=== PATIENT | female | born 1985 | race Caucasian/White ===

== ENCOUNTER → 2019-05-14 10:24 | Outpatient (CLI) | payer BC, SELFPAY ==
[2019-05-09 15:45] VITALS: BMI 17.6
[2019-05-14 11:19] LABS: Follicle Stimulating Hormone 10.9 mIU/mL; Prolactin 28.1 ng/mL; Thyroid Stim Hormone (TSH) 1.43 uIU/mL (0.358-3.74)
[2019-05-16 18:45] LABS: DHEA Sulfate 199.2 ug/dL (84.8-378.0)
[2019-05-17 17:07] LABS: Testosterone Free 0.9 pg/mL (0.0-4.2)
== END ==
PROVIDERS: Referring Provider Obstetrics & Gynecology; Visit Provider Obstetrics & Gynecology
DX: N94.6 Dysmenorrhea, unspecified (principal); L70.9 Acne, unspecified; N97.9 Female infertility, unspecified
CPT/HCPCS: 36415; 82627; 82670; 83001; 84146; 84402; 84439; 84443; 82626

== ENCOUNTER → 2019-09-22 14:38 | Outpatient (CLI) | payer BC, SELFPAY ==
[2019-09-22 14:25] VITALS: BMI 17.6
[2019-09-22 14:56] LABS: Absolute Lymphocyte Count 1.81 X10^3/uL (0.83-4.51); Absolute Neutrophil Count 4.5 X10^3/uL (2.0-7.7); Basophil# 0.03 X10^3/uL; Basophil% 0.4 % (0-1); Eosinophil# 0.03 X10^3/uL; Eosinophils% 0.4 % (0-5); Hematocrit 33.8 % (37-47); Hemoglobin 11.2 g/dL (12.0-15.0); Lymphocyte # 1.81 X10^3/ul (4.0); Mean Corp Hgb Conc 33.1 g/dL (32-36); Mean Corpuscular Hgb 29.2 pg (27.0-32.0); Mean Corpuscular Volume 88.3 fL (81-99); Mean Platelet Vol. 10.6 fl (6.2-12.0); Monocyte# 0.59 X10^3/uL; Monocyte% 8.5 % (0-10); NRBC Flagged by Analyzer 0 % (0-5); Neutrophil # 4.49 X10^3/uL (2.7-7.7); Neutrophil % 64.6 % (47-70); Platelet Count 155 K/mm3 (150-450); RBC Distribution Width CV 13.1 % (11.6-14.6); RBC Distribution Width SD 42.5 fl (35.1-43.9); Red Blood Count 3.83 M/mm3 (4.2-5.4)
[2019-09-22 16:21] LABS: HIV - WCH Non-Reactive (Nonreactive); Hepatitis B Surface Antigen Non-Reactive (Nonreactive); Rubella IgG 70.3 IU/mL
[2019-09-22 19:50] LABS: Chlamydia Trachomatis by PCR Negative (Negative); Neisserai gonorrhoeae by PCR Negative (Negative); Probe Check PASS; Sample Adequacy Control PASS; Specimen Processing Control PASS
[2019-09-29 02:45] LABS: Rapid Plasmin Reagin (RPR) NONREACTIVE (NONREACTIVE)
== END ==
PROVIDERS: Referring Provider Obstetrics & Gynecology; Visit Provider Obstetrics & Gynecology
DX: Z34.90 Encounter for supervision of normal pregnancy, unspecified, unspecified trimester (principal)
CPT/HCPCS: 36415; 85025; 86592; 86703; 86762; 86850; 86900; 86901; 87086; 87088; 87340; 87491; 87591

== ENCOUNTER → 2020-02-09 16:00 | Outpatient (CLI) | payer BC, SELFPAY ==
[2020-02-09 15:39] VITALS: BMI 18.8
[2020-02-09 16:57] LABS: Absolute Lymphocyte Count 1.99 X10^3/uL (0.83-4.51); Absolute Neutrophil Count 6.2 X10^3/uL (2.0-7.7); Basophil# 0.03 X10^3/uL; Basophil% 0.3 % (0-1); Eosinophil# 0.06 X10^3/uL; Eosinophils% 0.7 % (0-5); Hematocrit 30.5 % (37-47); Hemoglobin 9.9 g/dL (12.0-15.0); Lymphocyte # 1.99 X10^3/ul (4.0); Lymphocyte % 21.8 % (19-41); Mean Corp Hgb Conc 32.5 g/dL (32-36); Mean Corpuscular Volume 89.4 fL (81-99); Mean Platelet Vol. 10.3 fl (6.2-12.0); Monocyte# 0.69 X10^3/uL; Monocyte% 7.6 % (0-10); NRBC Flagged by Analyzer 0 % (0-5); Neutrophil # 6.23 X10^3/uL (2.7-7.7); Neutrophil % 68.3 % (47-70); Platelet Count 175 K/mm3 (150-450); RBC Distribution Width CV 12.9 % (11.6-14.6); RBC Distribution Width SD 42.2 fl (35.1-43.9); Red Blood Count 3.41 M/mm3 (4.2-5.4); White Blood Count 9.1 K/mm3 (4.4-11.0)
[2020-02-09 17:32] LABS: Glucose Challenge Gest 1H 50g 125 mg/dL (70-140)
== END ==
PROVIDERS: Nurse Practitioner Women's Health; Referring Provider Obstetrics & Gynecology; Visit Provider Obstetrics & Gynecology
DX: Z34.90 Encounter for supervision of normal pregnancy, unspecified, unspecified trimester (principal)
CPT/HCPCS: 36415; 82950; 85025; 86850

== ENCOUNTER → 2020-03-08 15:21 | Outpatient (CLI) | payer BC, SELFPAY ==
[2020-02-09 15:39] VITALS: BMI 18.8
[2020-03-08 15:36] LABS: Absolute Lymphocyte Count 1.71 X10^3/uL (0.83-4.51); Absolute Neutrophil Count 7.2 X10^3/uL (2.0-7.7); Basophil# 0.04 X10^3/uL; Basophil% 0.4 % (0-1); Eosinophil# 0.05 X10^3/uL; Eosinophils% 0.5 % (0-5); Hematocrit 30.1 % (37-47); Hemoglobin 9.6 g/dL (12.0-15.0); Lymphocyte # 1.71 X10^3/ul (4.0); Lymphocyte % 16.7 % (19-41); Mean Corp Hgb Conc 31.9 g/dL (32-36); Mean Corpuscular Hgb 28.7 pg (27.0-32.0); Mean Corpuscular Volume 90.1 fL (81-99); Mean Platelet Vol. 10.4 fl (6.2-12.0); Monocyte# 0.99 X10^3/uL; Monocyte% 9.7 % (0-10); NRBC Flagged by Analyzer 0 % (0-5); Neutrophil # 7.19 X10^3/uL (2.7-7.7); Neutrophil % 70.3 % (47-70); Platelet Count 151 K/mm3 (150-450); RBC Distribution Width CV 14.9 % (11.6-14.6); Red Blood Count 3.34 M/mm3 (4.2-5.4); White Blood Count 10.2 K/mm3 (4.4-11.0)
== END ==
PROVIDERS: Referring Provider Obstetrics & Gynecology; Visit Provider Obstetrics & Gynecology
DX: D50.9 Iron deficiency anemia, unspecified (principal)
CPT/HCPCS: 85025

== ENCOUNTER → 2020-03-14 14:22 | Outpatient (CLI) | payer BC, SELFPAY ==
[2020-03-08 15:49] VITALS: BMI 18.8
[2020-03-14] MEDS: 0.9% NaCl Peripheral Flush Adult/Peds IV (14:30)
[2020-03-14] MEDS: 0.9% NaCl IVPB Med Flush (250 mL) 15 ML IV (14:36)
[2020-03-14 14:38] VITALS: BP 105/69; PULSE 112; RESP 16; TEMP 36.7; BMI 22.1
== END ==
PROVIDERS: Referring Provider Obstetrics & Gynecology; Visit Provider Obstetrics & Gynecology
DX: D50.9 Iron deficiency anemia, unspecified (principal)
CPT/HCPCS: 96365; 96366; J1756; J7050; A4216

== ENCOUNTER → 2020-03-21 14:17 | Outpatient (CLI) | payer BC, SELFPAY ==
[2020-03-08 15:49] VITALS: BMI 18.8
[2020-03-14 14:38] VITALS: BMI 22.1
[2020-03-21] MEDS: 0.9% NaCl IVPB Med Flush (250 mL) 15 ML IV (14:55)
[2020-03-21] MEDS: 0.9% NaCl Peripheral Flush Adult/Peds IV (14:56)
[2020-03-21 15:11] VITALS: BP 119/61; PULSE 98; RESP 16; O2SAT 98; BMI 22.1
[2020-03-21 16:40] VITALS: BP 119/63; PULSE 102; RESP 16; O2SAT 99
== END ==
PROVIDERS: Referring Provider Obstetrics & Gynecology; Visit Provider Obstetrics & Gynecology
DX: D50.9 Iron deficiency anemia, unspecified (principal)
CPT/HCPCS: 96365; 96366; J1756; J7050; A4216

== ENCOUNTER → 2020-03-28 14:17 | Outpatient (CLI) | payer BC, SELFPAY ==
[2020-03-08 15:49] VITALS: BMI 18.8
[2020-03-21 15:11] VITALS: BMI 22.1
[2020-03-28 14:23] VITALS: BP 119/71; PULSE 115; RESP 18; TEMP 36.6; O2SAT 98; BMI 22.1
[2020-03-28] MEDS: 0.9% NaCl IVPB Med Flush (250 mL) 15 ML IV (14:34)
[2020-03-28] MEDS: 0.9% NaCl Peripheral Flush Adult/Peds IV (14:39)
== END ==
PROVIDERS: Referring Provider Obstetrics & Gynecology; Visit Provider Obstetrics & Gynecology
DX: D50.9 Iron deficiency anemia, unspecified (principal)
CPT/HCPCS: 96365; 96366; J1756; J7050; A4216

== ENCOUNTER → 2020-04-12 15:15 | Outpatient (CLI) | payer BC, SELFPAY ==
[2020-04-06 16:00] VITALS: BMI 22.1
[2020-04-12 15:49] LABS: Absolute Lymphocyte Count 1.73 X10^3/uL (0.83-4.51); Absolute Neutrophil Count 5.7 X10^3/uL (2.0-7.7); Basophil# 0.03 X10^3/uL; Basophil% 0.4 % (0-1); Eosinophil# 0.03 X10^3/uL; Eosinophils% 0.4 % (0-5); Hematocrit 34.7 % (37-47); Hemoglobin 11.4 g/dL (12.0-15.0); Lymphocyte # 1.73 X10^3/ul (4.0); Lymphocyte % 20.7 % (19-41); Mean Corp Hgb Conc 32.9 g/dL (32-36); Mean Corpuscular Hgb 30.2 pg (27.0-32.0); Mean Platelet Vol. 10.7 fl (6.2-12.0); Monocyte# 0.74 X10^3/uL; Monocyte% 8.8 % (0-10); NRBC Flagged by Analyzer 0 % (0-5); Neutrophil # 5.73 X10^3/uL (2.7-7.7); Neutrophil % 68.4 % (47-70); Platelet Count 149 K/mm3 (150-450); RBC Distribution Width CV 15.7 % (11.6-14.6); RBC Distribution Width SD 52.9 fl (35.1-43.9); Red Blood Count 3.77 M/mm3 (4.2-5.4); White Blood Count 8.4 K/mm3 (4.4-11.0)
== END ==
PROVIDERS: Referring Provider Obstetrics & Gynecology; Visit Provider Obstetrics & Gynecology
DX: D50.9 Iron deficiency anemia, unspecified (principal)
CPT/HCPCS: 36415; 85025

== ENCOUNTER → 2020-04-13 | Outpatient (CLI) | payer BC, SELFPAY ==
[2020-04-13 16:08] VITALS: BMI 22.1
== END | disposition home or self-care (01) ==
LOC: LABSPEC 16:51
PROVIDERS: Referring Provider Obstetrics & Gynecology; Visit Provider Obstetrics & Gynecology
DX: Z34.01 Encounter for supervision of normal first pregnancy, first trimester (principal)
CPT/HCPCS: 87077; 87081; 87186

== ENCOUNTER 2020-04-28 03:25 | Inpatient (IN) | payer BC, SELFPAY ==
[2020-04-27 15:58] VITALS: BMI 22.1
[2020-04-28] VITALS (67 sets, daily range): BP systolic 86–138; BP diastolic 53–94; PULSE 72–146; RESP 16–18; TEMP 36.3–37.1; O2SAT 97–100; BMI 24.0
[2020-04-28] MEDS: Lactated Ringers 500 ML 999 ML IV ×2 (03:50→05:35)
[2020-04-28 04:09] LABS: Absolute Lymphocyte Count 1.76 X10^3/uL (0.83-4.51); Basophil# 0.03 X10^3/uL; Basophil% 0.3 % (0-1); Eosinophil# 0.06 X10^3/uL; Eosinophils% 0.6 % (0-5); Hematocrit 40.1 % (37-47); Hemoglobin 12.9 g/dL (12.0-15.0); Lymphocyte # 1.76 X10^3/ul (4.0); Lymphocyte % 18.2 % (19-41); Mean Corp Hgb Conc 32.2 g/dL (32-36); Mean Corpuscular Hgb 29.8 pg (27.0-32.0); Mean Corpuscular Volume 92.6 fL (81-99); Mean Platelet Vol. 10.9 fl (6.2-12.0); Monocyte# 0.72 X10^3/uL; Monocyte% 7.4 % (0-10); NRBC Flagged by Analyzer 0 % (0-5); Neutrophil # 7.03 X10^3/uL (2.7-7.7); Neutrophil % 72.7 % (47-70); Platelet Count 166 K/mm3 (150-450); RBC Distribution Width CV 15.3 % (11.6-14.6); RBC Distribution Width SD 52.1 fl (35.1-43.9); Red Blood Count 4.33 M/mm3 (4.2-5.4); White Blood Count 9.7 K/mm3 (4.4-11.0)
[2020-04-28] MEDS: Lactated Ringers 1,000 ML 200 ML IV ×2 (04:30→09:40)
[2020-04-28] MEDS: fentaNYL-bupivacaine (epidural) 100 ML BAG EPIDURAL ×2 (05:22→09:40)
--- NOTE | 2020-04-28 06:27 | HP.PCM_ITS ---
- Problem List (1) SROM (spontaneous rupture of membranes) Status: Acute (2) Active labor at term Status: Acute (3) Iron (Fe) deficiency anemia Status: Acute Qualifiers: Comment: cbc still low, recommend IV iron infusions and repeat after completed (4) Positive GBS test Status: Acute Comment: Penicillin at delivery (5) Status: Acute Qualifiers: Comment: genetic, carrier and ntd screening declined, normal anatomy (6) Supervision of normal Status: Acute Qualifiers: Comment: PRR ANDREEA 05/05/20 boy Ashely - Addy History and Physical Date of Admission: 04/28/20 Intake Vital Signs 04/27/20 Height 5 ft 3 in 04/27/20 Weight: 137 lb 6 oz 04/27/20 BMI 24.3 04/27/20 BP 116/72 01/16/20 BMI 18.8 Intake Visit Reasons: 39 wk ob 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 Patient has had increasing contractions since then denies any vaginal bleeding admits good movement. Patient has had a uncomplicated . OB Visit ANDREEA Calculator Estimated Delivery Date Method Current WG Current Estimate 05/05/20 LMP (Certain) 39w 0d Expected Delivery Route/Plan Labor Preferences- labor support person: pain management options preferred: epidural cut cord/dad catch: yes : yes PP control planned: [] discussed possible routes of delivery and associated risks: [] special requests: [] Specific Issue/Plans flu vaccine: declined tdap vaccine: given rhogam: na LARC form signed: [] movement and labor precautions reviewed. Problem list reviewed and updated with the most current plan of care details and appropriate orders placed. Relevant counseling for the gestational age provided. Continue routine care and follow up unless otherwise noted in visit notes/problem list details Initial Weight: 110 lb Date EGA Weight BP Urine Prot Glucose FHR FuHt Pres Dilation Effaced St Visit Note 10/17/19 11w 2d 106 lb (-4 lb) 120/70 Negative Negative 168 no vb cramping 11/17/19 15w 5d 111 lb (+16 oz) 112/77 Negative Negative 145 SM- no vb cramping 12/15/19 19w 5d 117 lb 2 oz (+7 lb 2 oz) 110/80 Negative Negative 145 SM no vb cramping had nl anatomy 01/13/20 23w 6d 119 lb (+9 lb) 108/78 Negative Negative 140 SM- no vb lof good fm no regular ctx 02/09/20 27w 5d 123 lb 2 oz (+13 lb 2 oz) 110/78 Negative Negative 138 27 MH-No VB, LOF. Good Fm. 28 wk labs, tdap. 03/08/20 31w 5d 127 lb (+17 lb) 100/68 Negative Negative 150 32 SM- no vb lof good fm no regular ctx 04/06/20 35w 6d 130 lb (+20 lb) 102/74 Negative Negative 150 36 Cephalic SM- no vb lof good fm no regular ctx 04/13/20 36w 6d 135 lb 4 oz (+25 lb 4 oz) 130/94 Negative Negative 150 37 Cephalic 1 0 -1 SM- no vb lof good fm no regular ctx gbs today 04/20/20 37w 6d 132 lb 6 oz (+22 lb 6 oz) 120/84 Negative Negative 153 37 Cephalic 1 MH-No Vb, LOF, reg CTX. Good FM 04/27/20 38w 6d 137 lb 6 oz (+27 lb 6 oz) 116/72 Negative Negative 135 39 Cephalic 2 SM- no vb lof good fm no regular ctx Notes Visit Date: 04/27/20 ??No visit notes to display Visit Date: 04/20/20 ??No visit notes to display Visit Date: 04/13/20 ??No visit notes to display Visit Date: 04/06/20 ??No visit notes to display Visit Date: 03/08/20 ??No visit notes to display Visit Date: 02/09/20 ??No visit notes to display Visit Date: 01/13/20 ??No visit notes to display Visit Date: 12/15/19 ??No visit notes to display Visit Date: 11/17/19 ??No visit notes to display Visit Date: 10/17/19 ??no vb cramping ??Maria Fernanda Marquez MD on 10/17/19 ACOG First Trimester First Trimester: Desire for , Alcohol, Tobacco Cessation, Illicit/Recreational Drug/Substance Use, Intimate Partner Violence, Barriers to care, Unstable Housing, Communication Barriers, Environmental/Work Hazards, Anticipated Course of Care, Toxoplasmosis Precations, Use of Any medications, Sexual activity, Exercise, Dental Care, Sauna/Hot tub use, Seat Belt use, Childbirth classes/Hospital facilities, , Travel, Indications for US and Screening for Aneuploidy Diagnostics Diagnostics Diagnostics Blood Type O POSITIVE 04/28/20 Antibody Screen NEGATIVE 04/28/20 Glucose 1 Hr 50 gm 125 mg/dL (70-140) 02/09/20 Hgb 12.9 g/dL (12.0-15.0) 04/28/20 Hct 40.1 % (37-47) 04/28/20 Details: HIV: Urine Culture: Sequential Screen: NIPT Screen: ROS Const Reports system reviewed and no additional complaints, except as docu Card Reports system reviewed and no additional complaints, except as docu Resp Reports system reviewed and no additional complaints, except as docu GI Reports system reviewed and no additional complaints, except as docu, Reports nausea Reports system reviewed and no additional complaints, except as docu Musc Reports system reviewed and no additional complaints, except as docu Exam Const General: cooperative, healthy appearing, comfortable, anxious HENMT Head: normal to inspection Nose: external nose normal Face and sinus: normal facial exam Neck Neck: normal visual inspection, full ROM, no lymphadenopathy Thyroid: thyroid normal Chest Chest palpation & inspection: normal inspection of the chest Resp Effort & Inspection: normal respiratory effort GI Inspection: normal to inspection Palpation: soft, other (gravid uterus) Other: vertex and appropriate size for gestational age Other: Cervical Exam: Extrem General: pedal edema Cervical exam station Results POC Urinalysis 2 Dip (Clinic) Office Urine Glucose Negative Last Edit by Kassy Webster on 04/27/20 15:54 Office Urine Protein Negative Last Edit by Kassy Webster on 04/27/20 15:54 Assessment & Plan Problems 1. Positive GBS test B95.1 Penicillin at delivery 2. Iron deficiency anemia, unspecified iron deficiency anemia type D50.9 cbc still low, recommend IV iron infusions and repeat after completed 3. 38 weeks gestation of Z3A.38 genetic, carrier and ntd screening declined, normal anatomy 4. Encounter for supervision of normal first in first trimester Z34.01 PRR ANDREEA 05/05/20 boy Ashely - Addy 34-year-old G1, P0 at 39 weeks presents with spontaneous rupture membranes and active labor Patient presents IAL, plan expectant management for , Pitocin if needed. Pain management: [plans epidural]. GBS [positive plan IV PCN]. Management of any complications: [none] I have reviewed the [facility] and made any clinically relevant updates. Orders Orders: POC Urinalysis 2 Dip (Clinic) 04/27/20 Coding Level of Care Code OB Routine Diagnoses Positive GBS test B95.1 Iron deficiency anemia, unspecified iron deficiency anemia type D50.9 ??Iron deficiency anemia type: unspecified iron deficiency 38 weeks gestation of Z3A.38 ??Weeks of gestation: 38 weeks Encounter for supervision of normal first in first trimester Z34.01 ??Normal : normal first ??Trimester: first trimester
--- NOTE | 2020-04-28 12:02 | OP.PCM_ITS ---
Problem List (1) SROM (spontaneous rupture of membranes) Status: Acute (2) Active labor at term Status: Acute (3) Iron (Fe) deficiency anemia Status: Acute Qualifiers: Comment: cbc still low, recommend IV iron infusions and repeat after completed (4) Positive GBS test Status: Acute Comment: Penicillin at delivery (5) Status: Acute Qualifiers: Comment: genetic, carrier and ntd screening declined, normal anatomy (6) Supervision of normal Status: Acute Qualifiers: Comment: PRR ANDREEA 05/05/20 boy Ashely - Addy Vaginal Delivery Maternal Presentation: Active Labor, Spontaneous Rupture of Membranes ial srom clear fluid Amniotic Fluid Description: Clear Final ANDREEA: 05/05/20 Gestational age: 39 Weeks and 0 Days Date of Procedure: 04/28/20 Pre-Operative Diagnosis: ial Post-Operative Diagnosis: same Surgery/ Procedure Performed: Spontaneous Vaginal Delivery Type of Anesthesia: Epidural Description of Procedure: Patient began pushing and delivered the head in the [BALTA] presentation. The head was delivered atraumatically . The anterior and posterior shoulders delivered without complication followed by the rest of the and the infant was placed on the maternal abdomen. Delayed cord clamping was employed for approximately 60 seconds. Cord was clamped and cut and gentle traction was appl ied to the cord and the placenta delivered spontaneously immediately following it was noted to be intact with three-vessel cord. The perineum and vagina were inspected and noted to have a second-degree perineal laceration that was repaired in the usual fashion with 3-0 Vicryl Rapide some interrupted 2-0 Vicryl sutures. EBL was 300 cc. Patient and infant tolerated delivery well. Presentation: FREDIS Placental Delivery Description: Spontaneous Placenta Disposition: [facility] Cord Entanglement: None Estimated Blood Loss: 300 A gender: Male Episiotomy Description: None Laceration: Perineal Extension/lac, 2nd degree Medications given after delivery: IV Pitocin Complications: None Multi Select Codes - Urinary/Genital Urinary/Genital CPT Codes: 23260 Vaginal Delivery [facility]
[2020-04-28] MEDS: Oxytocin 30 units/NS 500 ml 30 UNITS/500 ML IV.SOLN 334 UNITS IV (12:56)
--- NOTE | 2020-04-28 14:31 | NURSING ---
thomas removed prior to delivery by Dr. Marquez
[2020-04-28] MEDS: Senna/Docusate Sodium 1 Tablet PO (17:28)
[2020-04-28] MEDS: Naproxen 250 MG Tablet 500 MG PO (17:28)
--- NOTE | 2020-04-28 17:45 | NURSING ---
patients ability to ambulate assessed. Patient able to move left leg freely in bed. patient able to lift right leg off bed 2 inches but does not have full range of motion. Patient reports range of motion improving from previous. Will continue to assess patient for ability to ambulate.
--- NOTE | 2020-04-28 18:35 | NURSING ---
patient reports her right leg remains numb at this time and is unable to lift it off the bed. patient reports having feeling in her lower abdomen and is able to feel this nurses touch during straight catheterization. Patient is able to move left leg. Patient reports sedatives taking a long time to wear off on her during previous surgeries. Will continue to monitor.
--- NOTE | 2020-04-28 18:39 | NURSING ---
fundal assessment post straight catheterization
--- NOTE | 2020-04-28 18:40 | NURSING ---
Patient assisted to edge of bed at this time. patient able to stand. Assisted x1 to rocking chair by this RN. Patient denies dizziness or other symptoms. Support person at bedside. call light in reach. Will continue to monitor.
[2020-04-28] MEDS: Acetaminophen 500 MG Tablet 1000 MG PO (23:09)
[2020-04-29] MEDS: Naproxen 250 MG Tablet 500 MG PO ×2 (01:51→11:07)
[2020-04-29 04:25] VITALS: BP 113/74; PULSE 88; RESP 16; TEMP 36.9
--- NOTE | 2020-04-29 07:22 | DCINST_ITS ---
Discharge Diet: No Restrictions Discharge Activity: Return to Normal Activity, May not drive while taking narcotic pain medications., May Shower May resume sexual activity in: 4-6 weeks Call your doctor if your incision/area has: Continuous Slow Oozing, Sudden Increased Bleeding, Increased Pain/ Swelling, Increased Redness, Foul Smelling Discharge Additional Instructions: If you experience any of the following, contact your healthcare provider. * Bleeding that soaks a pad every hour for 2 hours * Fever 100.4 or higher * Unrelieved incision or abdominal pain * Swelling, redness, discharge or bleeding from your incision or episiotomy site * Your incision begins to separate * Problems urinating (including inability to urinate or burning while urinating). * Visual changes * Severe headache * Flu-like symptoms * Pain or redness in one of both of your breasts * Pain, warmth, tenderness or swelling in your legs, especially the calf area * Frequent nausea and vomiting * Symptoms of depression or anxiety If you experience any of the following, call 911 or go to the nearest Emergency Room. * Chest pain * Problems breathing * Seizure activity * Partial or complete paralysis of a body part, slurred speech, weakness or drooping of the face, or a sudden inability to walk or hold your balance Allergies/Adverse Reactions: Allergies No Known Allergies Allergy (Verified 04/27/20 15:54) Medications to take at Discharge Docosahexanoic Acid [ Dha] 1 cap PO DAILY 04/28/20 Docusate Sodium [Colace] 100 mg PO BID #60 cap 04/29/20 Naproxen [Naprosyn] 250 - 500 mg PO Q8H PRN PRN #30 tab 04/29/20 Oxycodone HCl/Acetaminophen [Percocet 5-325] 1 - 2 tablet PO Q6H PRN PRN 7 Days #15 tablet 04/29/20 The following prescriptions were given: Docusate Sodium [Colace] 100 mg PO BID #60 cap Transmission Status: [facility] to [id number] Naproxen [Naprosyn] 250 - 500 mg PO Q8H PRN PRN #30 tab PRN Reason: MILD PAIN Transmission Status: [id number] Oxycodone HCl/Acetaminophen [Percocet 5-325] 1 - 2 tablet PO Q6H PRN PRN 7 Days #15 tablet PRN Reason: Pain Transmission Status: Received by [id number] Please Follow Up With: Maria Fernanda Marquez MD - [phone] When: Call to make an appointment with your doctor in 6 weeks. If you had elevated Blood pressure or 4th degree laceration you will need to be seen in 2 weeks. Primary Care Physician: Care Physician,No Primary [Primary Care Provider] - Test Results: Test results from this visit will be discussed in further detail at your follow- up appointment, if applicable.
--- NOTE | 2020-04-29 07:22 | PCM.PN.OB ---
Patient Problems: Active and Suspected Problems (Last Reviewed 04/27/20 @ 15:55 by Kassy Webster) SROM (spontaneous rupture of membranes) (Acute) Active labor at term (Acute) Subjective: doing well no complaints pain controlled no CP SOB N V ambulating well tolerating po lochia moderate, going well - Physical Exam Vitals/I&O's: Vital Signs Temp Pulse Resp BP Pulse Ox 98.4 F 88 16 113/74 100 04/29/20 04:25 04/29/20 04:25 04/29/20 04:25 04/29/20 04:25 04/28/20 15:17 Oxygen Delivery Method Room Air Weight: 135 lb 8 oz Body Mass Index (BMI) 24.0 Intake and Output for Last 24 Hours 04/27/20 04/28/20 04/29/20 23:59 23:59 23:59 Intake Total 4248.33 / 4248.33 Output Total 1300 / 1300 250 / 250 Balance 2948.33 / 2948.33 -250 / -250 General: Alert, Oriented x3 Current Medications Acetaminophen (Tylenol) 1,000 mg PO Q8H PRN PRN PRN Reason: Pain Score 1-3/10 Last Admin: 04/28/20 23:09 Dose: 1,000 mg Documented by: Bisacodyl (Dulcolax) 10 mg RECTAL UD PRN PRN Reason: If no BM Dibucaine (Dibucaine) 1 applic TOPICAL TID PRN PRN; Protocol PRN Reason: Discomfort Hydrocortisone (Hytone) 1 applic TOPICAL TID PRN PRN; Protocol PRN Reason: Discomfort Methylergonovine Maleate (Methergine) 0.2 mg IM X1 PRN PRN Reason: Excess bleeding/uterine atony Naproxen (Naprosyn) 500 mg PO Q8H PRN PRN PRN Reason: Pain Score 1-3/10 Last Admin: 04/29/20 01:51 Dose: 500 mg Documented by: Ondansetron HCl (Zofran) 4 mg IV Q4H PRN PRN PRN Reason: Nausea Oxycodone HCl (Oxyir) 5 - 10 mg PO Q4H PRN PRN PRN Reason: Pain Score 4-10/10 Senna/Docusate Sodium (Senokot-S, Sun-Colace) 1 - 2 tablet PO DAILY PRN PRN PRN Reason: Constipation Last Admin: 04/28/20 17:28 Dose: 1 tablet Documented by: Simethicone (Mylicon) 80 mg PO PCHS PRN PRN Reason: Indigestion/Stomach pain Sodium Chloride () 5 - 15 ml IV UD PRN PRN Reason: SALINE FLUSH Medical Necessity - Tobacco Use Smoking Status: Never smoker Assessment/Plan All Active Problems (Last Reviewed 04/27/20 @ 15:55 by Kassy Webster) SROM (spontaneous rupture of membranes) (Acute) Active labor at term (Acute) Positive GBS test (Acute) Iron (Fe) deficiency anemia (Acute) (Acute) Supervision of normal (Acute) Acne (Resolved) Dysmenorrhea (Resolved) Primary female infertility (Resolved) s/p PPD # 1 1. routine post delivery care 2. breast feeding- support given 3. rh positive 4. rubella immune
--- NOTE | 2020-04-29 07:22 | PCM.DCVAG ---
Discharge Diet: No Restrictions Discharge Activity: Return to Normal Activity, May not drive while taking narcotic pain medications., May Shower May resume sexual activity in: 4-6 weeks Call your doctor if your incision/area has: Continuous Slow Oozing, Sudden Increased Bleeding, Increased Pain/ Swelling, Increased Redness, Foul Smelling Discharge Additional Instructions: If you experience any of the following, contact your healthcare provider. Bleeding that soaks a pad every hour for 2 hours Fever 100.4 or higher Unrelieved incision or abdominal pain Swelling, redness, discharge or bleeding from your incision or episiotomy site Your incision begins to separate Problems urinating (including inability to urinate or burning while urinating). Visual changes Severe headache Flu-like symptoms Pain or redness in one of both of your breasts Pain, warmth, tenderness or swelling in your legs, especially the calf area Frequent nausea and vomiting Symptoms of depression or anxiety If you experience any of the following, call 911 or go to the nearest Emergency Room. Chest pain Problems breathing Seizure activity Partial or complete paralysis of a body part, slurred speech, weakness or drooping of the face, or a sudden inability to walk or hold your balance Allergies/Adverse Reactions: Allergies No Known Allergies Allergy (Verified 04/27/20 15:54) Medications to take at Discharge Docosahexanoic Acid [ Dha] 1 cap PO DAILY 04/28/20 Docusate Sodium [Colace] 100 mg PO BID #60 cap 04/29/20 Naproxen [Naprosyn] 250 - 500 mg PO Q8H PRN PRN #30 tab 04/29/20 Oxycodone HCl/Acetaminophen [Percocet 5-325] 1 - 2 tablet PO Q6H PRN PRN 7 Days #15 tablet 04/29/20 The following prescriptions were given: Docusate Sodium [Colace] 100 mg PO BID #60 cap Transmission Status: [id number] Naproxen [Naprosyn] 250 - 500 mg PO Q8H PRN PRN #30 tab PRN Reason: MILD PAIN Transmission Status: [id number] Oxycodone HCl/Acetaminophen [Percocet 5-325] 1 - 2 tablet PO Q6H PRN PRN 7 Days #15 tablet PRN Reason: Pain Transmission Status: [id number] Please Follow Up With: Maria Fernanda Marquez MD - [phone] When: Call to make an appointment with your doctor in 6 weeks. If you had elevated Blood pressure or 4th degree laceration you will need to be seen in 2 weeks. Primary Care Physician: Care Physician,No Primary [Primary Care Provider] - Test Results: Test results from this visit will be discussed in further detail at your follow-up appointment, if applicable.
[2020-04-29 08:29] VITALS: BP 113/73; PULSE 88; RESP 16; TEMP 35.6
[2020-04-29 08:30] VITALS: BP 113/73; PULSE 88
[2020-04-29] MEDS: Acetaminophen 500 MG Tablet 1000 MG PO (08:42)
[2020-04-29 13:35] VITALS: BP 115/72; PULSE 107
[2020-04-29 13:45] VITALS: BP 115/72; PULSE 101; TEMP 37.1
== END 2020-04-29 14:30 | disposition home or self-care (01) | DRG 807 ==
LOC: OBT 03:27 → WP 03:27
PROVIDERS: Admitting Provider Obstetrics & Gynecology; Referring Provider Obstetrics & Gynecology; Visit Provider Obstetrics & Gynecology
DX: O98.813 Other maternal infectious and parasitic diseases complicating pregnancy, third trimester (principal); Z37.0 Single live birth; O70.1 Second degree perineal laceration during delivery; O99.013 Anemia complicating pregnancy, third trimester; D50.9 Iron deficiency anemia, unspecified; B95.1 Streptococcus, group B, as the cause of diseases classified elsewhere; Z3A.39 39 weeks gestation of pregnancy
CPT/HCPCS: 59025; 59050; 85025; 86850; 86900; 86901; 87635; 99218; G2023; J7120; G0378; U0003

== ENCOUNTER → 2020-06-07 | Outpatient (CLI) | payer BC, SELFPAY ==
[2020-06-07 14:26] VITALS: BMI 24.0
[2020-06-13 16:57] LABS: HPV APTIMA, High Risk Negative (Negative)
== END | disposition home or self-care (01) ==
LOC: LABSPEC 16:30
PROVIDERS: Referring Provider Obstetrics & Gynecology; Visit Provider Obstetrics & Gynecology
DX: Z12.4 Encounter for screening for malignant neoplasm of cervix (principal)
CPT/HCPCS: 87624; 88175; G0145

== ENCOUNTER → 2023-10-30 | Outpatient (CLI) | payer BC, SELFPAY ==
[2023-11-06 13:07] LABS: HPV APTIMA, High Risk Positive (Negative)
== END | disposition home or self-care (01) ==
LOC: LABSPEC 16:56
PROVIDERS: Referring Provider Obstetrics & Gynecology; Visit Provider Obstetrics & Gynecology
DX: Z12.4 Encounter for screening for malignant neoplasm of cervix (principal)
CPT/HCPCS: 87624; 88175; G0145

== ENCOUNTER → 2023-12-15 | Outpatient (CLI) | payer BC, SELFPAY ==
--- NOTE | 2023-12-15 | CER_PTH ---
PATHOLOGY RESULTS PATIENT: IVANNA OZUNA [id number] AGE/SX: 38/F ROOM: RE12/15/[address]: Dr. Ivanna Potts DO : 1985 BED: DIS: 12/15/2023 SPEC #: [id number] RECD: 12/15/23 16:40 STATUS: JARROD SB #: [id number] ADDIS: 12/15/23 00:[address]: Ivanna Potts DEPT: SURGICAL PATHOLOGY RECD BY: Rukhsana Donaldson ENTERED: 12/16/23 08:34 SP TYPE: CERV OTHR DR: No Primary Care Phys Tissues: Uterine cervix, NOS Endocervical Procedures: Surgery Specimen Level IV HEADER OPERATION: Colposcopy PRE-OP DIAGNOSIS: Abnormal pap TISSUE SUBMITTED: A - Cervix 7 o'clock, B - Endocervical curettings MICROSCOPIC DIAGNOSIS A. Cervix, 7 o'clock, biopsy: Chronic inflammation and squamous metaplasia. Negative for dysplasia. See comment. B. Endocervical curettings: Fragments of benign endocervical epithelium, negative for dysplasia. CALDERON:jazlyn 12/17/2023 COMMENT A. Immunohistochemistry ([id number]) for surrogate HPV marker (p16) supports the above diagnosis. MICROSCOPIC DESCRIPTION Slides are reviewed. GROSS DESCRIPTION A - Received in fixative is one container labeled with the patient's name and designated 7 o'clock. The specimen consists of one irregular fragment of light engel soft tissue that measures 0.5 x 0.3 x 0.2 cm. The specimen is totally submitted in one cassette. B - Received in fixative is one container labeled with the patient's name and designated [facility]. The specimen consists of a scant amount of soft tissue. The specimen is totally submitted for cell block preparation. / CALDERON:jazlyn 12/16/2023 TC:5 CPT: 12581 x2
--- OUTSIDE RECORDS SUMMARY | 2023-12-15 17:26 | XMS RPT_ITS | CCD ---
Author Name Unknown Address [facility] [place] [address] Organization [facility] Care Team Providers Care Banana Loader Name Role Phone Maria Fernanda Marquez MD [phone] Problems Active Problems Problem Classification Problem Date Documented Date Episodic/Chronic Unclassified (3 sources) Screening for malignant neoplasm of cervix ; Translations: [Encounter for screening for malignant neoplasm of cervix] Onset: 08-07-2017 08-07-2017 Unclassified (3 sources) Gynecologic examination ; Translations: [Encounter for gynecological examination (general) (routine) without abnormal findings] Onset: 08-07-2017 08-07-2017 Unclassified (2 sources) Postoperative physical examination; Translations: [Encounter for other specified surgical aftercare] Onset: 05-15-2016 05-15-2016 Unclassified (2 sources) Procedure carried out on subject; Translations: [Encounter for screening for human papillomavirus (HPV)] Onset: 08-07-2017 08-07-2017 Past or Other Problems Problem Classification Problem Date Documented Date Episodic/Chronic Contraceptive and procreative management (3 sources) Encounter for other general counseling and advice on procreation; Translations: [Encounter for other general counseling and advice on procreation] Onset: 08-07-2017 08-07-2017 Episodic Fracture of upper limb (8 sources) Displaced fracture of olecranon process with intraarticular extension of left ulna, subsequent encounter for closed fracture with routine healing; Translations: [Displaced fracture of olecranon process with intraarticular extension of left ulna, initial encounter for closed fracture] Onset: 04-25-2016 05-15-2016 Episodic Immunizations and screening for infectious disease (3 sources) Encounter for screening for human papillomavirus (HPV); Translations: [Encounter for screening for human papillomavirus (HPV)] Onset: 08-07-2017 08-07-2017 Episodic Other aftercare (2 sources) Encounter for other specified surgical aftercare; Translations: [Encounter for other specified surgical aftercare] Onset: 05-15-2016 05-15-2016 Episodic Other non-traumatic joint disorders (7 sources) Pain in elbow; Translations: [Pain in wrist] Onset: 04-25-2016 04-29-2016 Episodic Other non-traumatic joint disorders (1 source) Pain in wrist; Translations: [Pain in left wrist] Onset: 04-25-2016 04-25-2016 Episodic Results Test Name Value Interpretation Reference Range Facil ity Vital Signs Date Time Vital Sign Value Performing Clinician Faci lity 08-07-2017 16:11-0400 BMI (Body Mass Index) 18.46 kg/m2 Maria Fernanda Marquez MD [facility] 08-07-2017 16:11-0400 Body Temperature 96.9 [degF] Maria Fernanda Marquez MD [facility] 08-07-2017 16:11-0400 Body Temperature 96.91 [degF] Maria Fernanda Marquez MD [facility] 08-07-2017 16:11-0400 BP Diastolic 78 mm[Hg] Maria Fernanda Marquez MD [facility] 08-07-2017 16:11-0400 BP Systolic 122 mm[Hg] Maria Fernanda Marquez MD [facility] 08-07-2017 16:11-0400 Height 160.02 cm Maria Fernanda Marquez MD [facility] 08-07-2017 16:11-0400 Pulse (Heart Rate) 121 /min Maria Fernanda Marquez MD [facility] 08-07-2017 16:11-0400 Respiratory Rate 16 /min Maria Fernanda Marquez MD [facility] 08-07-2017 16:11-0400 Weight 47.27 kg Maria Fernanda Marquez MD [facility] 08-07-2017 16:11-0400 Weight 47.26 kg Maria Fernanda Marquez MD [facility] Procedures Date Procedure Procedure Detail Performing Clinician Start: 08-07-2017 Gynecologic examination Travel Med Surg Rn annual e malcolm Marquez MD Start: 08-07-2017 Screening for malign ant neoplasm of cervix Screening for cervical cancer Maria Fernanda Marquez MD Plan of Treatment Date Care Activity Detail Author Start: 08-07-2017 End: 08-07-2017 Appointment Appointment [facility] Start: 08-05-2016 End: 08-05-2016 Radex elbow complete minimum 3 views X-Ray, Elbow [facility] Start: 08-05-2016 End: 08-05-2016 X-ray exam of elbow X-Ray, Elbow [facility] Start: 06-12-2016 End: 06-12-2016 Radex elbow complete minimum 3 views X-Ray, Elbow [facility] Start: 06-12-2016 End: 06-12-2016 X-ray exam of elbow X-Ray, Elbow [facility] Start: 05-21-2016 End: 05-21-2016 Occupational Therapy General Occupational Therapy [facility], [address] [place] [address], [id number] [facility] Start: 05-21-2016 End: 05-21-2016 Occupational Therapy General Occupational Therapy [facility], [address] [place] [address], [id number] [facility] Start: 05-15-2016 End: 05-15-2016 Radex elbow complete minimum 3 views X-Ray, Elbow [facility] Start: 05-15-2016 End: 05-15-2016 X-ray exam of elbow X-Ray, Elbow [facility] Start: 05-06-2016 End: 05-06-2016 Radex elbow complete minimum 3 views X-Ray, Elbow [facility] Start: 05-06-2016 End: 05-06-2016 X-ray exam of elbow X-Ray, Elbow [facility] Start: 04-25-2016 End: 04-25-2016 Radex wrist complete minimum 3 views X-Ray, Wrist [facility] Start: 04-25-2016 End: 04-25-2016 X-ray exam of wrist X-Ray, Wrist [facility] Additional Source Comments FOR RECORDS PERTAINING TO PATIENTS WHO ARE OR HAVE BEEN ENROLLED IN A CHEMICAL DEPENDENCY/SUBSTANCEABUSE PROGRAM, SOME INFORMATION MAY BE OMITTED. This clinical summary was aggregated from multiple sources. Caution should be exercised in using it in the provision of clinical care. This summary normalizes information from multiple sources, and as a consequence, information in this document may materially change the coding, format and clinical context of patient data. In addition, data may be omitted in some cases. CLINICAL DECISIONS SHOULD BE BASED ON THE PRIMARY CLINICAL RECORDS. [employer] [facility]. provides no warranty or guarantee of the accuracy or completeness of information in this document.
--- NOTE | 2023-12-17 | IMM_PTH ---
PATHOLOGY RESULTS PATIENT: IVANNA OZUNA LOC: [facility] U#:[id number] AGE/SX: 38/F ROOM: RE12/15/[address]: Dr. Ivanna Potts DO : 1985 BED: DIS: 12/15/2023 SPEC #: [id number] RECD: 12/17/23 11:29 STATUS: JARROD SB #: [id number] ADDIS: 12/17/23 00:[address]: Ivanna Potts DEPT: IMMUNOHISTOCHEMISTRY RECD BY: Lakesha Cardenas ENTERED: 12/17/23 11:31 SP TYPE: IMMUNO OTHR DR: No Primary Care Phys Tissues: Uterine cervix, NOS Embryo, NOS Procedures: p16 (initial) KI-67 (add) PHYSICIAN & INSTITUTION [facility] [id number] SPECIMEN INFORMATION: Tissue Source: A - Cervix at 7 o'clock Clinical Info: Colposcopy Specimen Number: [id number] CPT code: 69789, 98164 METHODOLOGY: Deparaffinized sections of prefer/formalin-fixed tissue or PAP/DQ stained slides are incubated with monoclonal/polyclonal antibodies/oligonucleotide probes. Localization is made via biotin free immunoperoxidase method. Appropriate controls are performed and reacted as expected. Results on target cell population are indicated in the following table: RESULTS: ANTIBODY / CLONE RESULT Block A P16 (E6H4) negative Ki-67 (30-9) positive, low These tests were developed and their performance characteristics determined by [facility]. They may not have been cleared or approved by the U.S. Food and Drug Administration. The FDA has determined that such clearance or approval is not necessary. The above immunohistochemical/dualISH markers are ordered and reviewed by the Pathologist. INTERPRETATION: A. Cervix at 7 o'clock, biopsy: Negative for dysplasia. CALDERON:jazlyn 12/18/2023
== END | disposition home or self-care (01) ==
LOC: LABSPEC 16:45
PROVIDERS: Referring Provider Obstetrics & Gynecology; Visit Provider Obstetrics & Gynecology
DX: R87.619 Unspecified abnormal cytological findings in specimens from cervix uteri (principal)
CPT/HCPCS: 88305; 88341; 88342

== ENCOUNTER → 2024-07-08 | Outpatient (CLI) | payer BC, SELFPAY ==
[2024-07-08 15:09] LABS: Absolute Lymphocyte Count 2.22 X10^3/uL (0.83-4.51); Absolute Neutrophil Count 4.9 X10^3/uL (2.0-7.7); Basophil# 0.03 X10^3/uL; Basophil% 0.4 % (0-1); Eosinophil# 0.03 X10^3/uL; Eosinophils% 0.4 % (0-5); Hematocrit 33.5 % (37-47); Hemoglobin 11.1 g/dL (12.0-15.0); Lymphocyte # 2.22 X10^3/ul (0.83-4.51); Lymphocyte % 28.4 % (19-41); Mean Corp Hgb Conc 33.1 g/dL (32-36); Mean Corpuscular Hgb 29.1 pg (27.0-32.0); Mean Corpuscular Volume 87.7 fL (81-99); Mean Platelet Vol. 10.6 fl (6.2-12.0); Monocyte% 7.7 % (0-10); NRBC Flagged by Analyzer 0 % (0-5); Neutrophil # 4.91 X10^3/uL (2.7-7.7); Neutrophil % 62.8 % (47-70); Platelet Count 184 K/mm3 (150-450); RBC Distribution Width CV 12.7 % (11.6-14.6); RBC Distribution Width SD 40.6 fl (35.1-43.9); Red Blood Count 3.82 M/mm3 (4.2-5.4); White Blood Count 7.8 K/mm3 (4.4-11.0)
[2024-07-08 16:17] LABS: HIV - WCH Non-Reactive (Nonreactive); Hepatitis B Surface Antigen Non-Reactive (Nonreactive); Hepatitis C Antibody Non-Reactive (Nonreactive); Rubella IgG Reactive (Nonreactive); Syphilis Antibodies Non-reactive
[2024-07-11 20:07] LABS: Chlamydia By Nucleic Acid AMP Negative (Negative); Gonococcus By Nucleic Acid AMP Negative (Negative)
== END | disposition home or self-care (01) ==
PROVIDERS: Referring Provider Advanced Practice Midwife; Visit Provider Advanced Practice Midwife
DX: O09.90 Supervision of high risk pregnancy, unspecified, unspecified trimester (principal)
CPT/HCPCS: 36415; 85025; 86703; 86762; 86780; 86803; 86850; 86900; 86901; 87086; 87088; 87340; 87491; 87591

== ENCOUNTER → 2024-10-03 | Outpatient (CLI) | payer BC, SELFPAY ==
[2024-10-03 16:55] LABS: Absolute Lymphocyte Count 2.05 X10^3/uL (0.83-4.51); Absolute Neutrophil Count 6.7 X10^3/uL (2.0-7.7); Basophil# 0.04 X10^3/uL; Basophil% 0.4 % (0-1); Eosinophil# 0.08 X10^3/uL; Eosinophils% 0.8 % (0-5); Hematocrit 31.5 % (37-47); Hemoglobin 10.4 g/dL (12.0-15.0); Lymphocyte # 2.05 X10^3/ul (0.83-4.51); Lymphocyte % 21.2 % (19-41); Mean Corpuscular Hgb 29.9 pg (27.0-32.0); Mean Corpuscular Volume 90.5 fL (81-99); Mean Platelet Vol. 10.6 fl (6.2-12.0); Monocyte# 0.77 X10^3/uL; NRBC Flagged by Analyzer 0 % (0-5); Neutrophil # 6.68 X10^3/uL (2.7-7.7); Platelet Count 194 K/mm3 (150-450); RBC Distribution Width CV 13.8 % (11.6-14.6); RBC Distribution Width SD 45.3 fl (35.1-43.9); Red Blood Count 3.48 M/mm3 (4.2-5.4); White Blood Count 9.7 K/mm3 (4.4-11.0)
== END | disposition home or self-care (01) ==
LOC: LAB 16:14
PROVIDERS: Referring Provider Advanced Practice Midwife; Visit Provider Advanced Practice Midwife
DX: Z34.92 Encounter for supervision of normal pregnancy, unspecified, second trimester (principal)
CPT/HCPCS: 36415; 85025

== ENCOUNTER → 2024-11-14 | Outpatient (CLI) | payer BC, SELFPAY ==
[2024-11-14 17:12] LABS: Absolute Neutrophil Count 6.3 X10^3/uL (2.0-7.7); Basophil# 0.03 X10^3/uL; Basophil% 0.3 % (0-1); Eosinophil# 0.04 X10^3/uL; Eosinophils% 0.5 % (0-5); Hematocrit 31.5 % (37-47); Hemoglobin 10.1 g/dL (12.0-15.0); Lymphocyte % 19.5 % (19-41); Mean Corp Hgb Conc 32.1 g/dL (32-36); Mean Corpuscular Hgb 29.2 pg (27.0-32.0); Mean Platelet Vol. 10.3 fl (6.2-12.0); Monocyte# 0.53 X10^3/uL; Monocyte% 6.1 % (0-10); NRBC Flagged by Analyzer 0 % (0-5); Neutrophil # 6.33 X10^3/uL (2.7-7.7); Neutrophil % 72.6 % (47-70); Platelet Count 193 K/mm3 (150-450); RBC Distribution Width CV 13.3 % (11.6-14.6); RBC Distribution Width SD 44.2 fl (35.1-43.9); Red Blood Count 3.46 M/mm3 (4.2-5.4); White Blood Count 8.7 K/mm3 (4.4-11.0)
[2024-11-14 17:20] LABS: Glucose Challenge Gest 1H 50g 148 mg/dL (70-140)
[2024-11-14 17:53] LABS: HIV - WCH Non-Reactive (Nonreactive); Syphilis Antibodies Non-reactive
== END | disposition home or self-care (01) ==
LOC: BWCLAB 15:38
PROVIDERS: Obstetrics & Gynecology; Referring Provider Obstetrics & Gynecology; Visit Provider Obstetrics & Gynecology
DX: O09.92 Supervision of high risk pregnancy, unspecified, second trimester (principal); Z13.1 Encounter for screening for diabetes mellitus; Z3A.00 Weeks of gestation of pregnancy not specified
CPT/HCPCS: 36415; 82950; 85025; 86703; 86780

== ENCOUNTER → 2024-11-23 | Outpatient (CLI) | payer BC, SELFPAY ==
[2024-11-23 07:22] LABS: Bedside Glucose 87 mg/dL (74-106)
[2024-11-23 07:52] LABS: Glucose GTT-Gestation. Fasting 88 mg/dL (<105)
[2024-11-23 08:22] LABS: Glucose GTT-Gestational 1 Hr 139 mg/dL (<190)
[2024-11-23 10:26] LABS: Glucose GTT-Gestational 2 Hr 124 mg/dL (<165)
[2024-11-23 11:58] LABS: Glucose GTT-Gestational 3 Hr 100 L (<145)
== END | disposition home or self-care (01) ==
LOC: LAB 06:49
PROVIDERS: Referring Provider Nurse Practitioner Women's Health; Visit Provider Nurse Practitioner Women's Health
DX: O99.810 Abnormal glucose complicating pregnancy (principal); Z3A.00 Weeks of gestation of pregnancy not specified
CPT/HCPCS: 36415; 82951; 82952; 82962

== ENCOUNTER → 2024-11-29 | Outpatient (CLI) | payer BC, SELFPAY ==
[2024-11-29 16:54] LABS: Absolute Lymphocyte Count 2.12 X10^3/uL (0.83-4.51); Absolute Neutrophil Count 6.2 X10^3/uL (2.0-7.7); Basophil# 0.04 X10^3/uL; Basophil% 0.4 % (0-1); Eosinophil# 0.07 X10^3/uL; Eosinophils% 0.8 % (0-5); Hematocrit 32.4 % (37-47); Hemoglobin 10.7 g/dL (12.0-15.0); Lymphocyte # 2.12 X10^3/ul (0.83-4.51); Lymphocyte % 22.9 % (19-41); Mean Corpuscular Hgb 29.8 pg (27.0-32.0); Mean Corpuscular Volume 90.3 fL (81-99); Mean Platelet Vol. 10.4 fl (6.2-12.0); Monocyte# 0.76 X10^3/uL; Monocyte% 8.2 % (0-10); NRBC Flagged by Analyzer 0 % (0-5); Neutrophil # 6.16 X10^3/uL (2.7-7.7); Neutrophil % 66.6 % (47-70); Platelet Count 188 K/mm3 (150-450); RBC Distribution Width CV 13.4 % (11.6-14.6); RBC Distribution Width SD 44.6 fl (35.1-43.9); Red Blood Count 3.59 M/mm3 (4.2-5.4); White Blood Count 9.3 K/mm3 (4.4-11.0)
[2024-11-29 17:21] LABS: Ferritin 10 ng/mL (8-252); Iron 84 ug/dL (50-170); Iron Binding Capacity,Total 530 ug/dL (250-450); PERCENT IRON SATURATION 15.8 % (15.0-55.0)
== END | disposition home or self-care (01) ==
LOC: BWCLAB 15:58
PROVIDERS: Referring Provider Obstetrics & Gynecology; Visit Provider Obstetrics & Gynecology
DX: O99.019 Anemia complicating pregnancy, unspecified trimester (principal); D64.9 Anemia, unspecified; Z3A.00 Weeks of gestation of pregnancy not specified

== ENCOUNTER → 2025-01-09 | Outpatient (CLI) | payer BC, SELFPAY | END | disposition home or self-care (01) | LOC: LABSPEC 15:26 | PROVIDERS: Referring Provider Obstetrics & Gynecology; Visit Provider Obstetrics & Gynecology | DX: O09.93 Supervision of high risk pregnancy, unspecified, third trimester (principal); Z3A.00 Weeks of gestation of pregnancy not specified | CPT/HCPCS: 87081 ==

== ENCOUNTER 2025-01-30 16:26 | Outpatient (CLI) | payer BC, SELFPAY ==
--- NOTE | 2025-01-30 16:37 | US_ITS ---
EXAM: OB LIMITED (NO BIOMETRICS) CLINICAL HISTORY: RACHANA. Reportedly 38 weeks 5 days by previously established dates with ANDREEA 02/08/2025. COMPARISON: None TECHNIQUE: A limited obstetrical ultrasound was performed to determine RACHANA. FINDINGS: Amniotic Fluid Index: 11.0 cm, deepest vertical pocket 3.5 cm. Nonspecific low- level echoes within amniotic fluid. Fetus is in breech presentation with a heart rate of 152 BPM. Placenta location: Posterior. Placental calcification noted. Ovaries not visualized. US/OB Limited (No Biometrics) IMPRESSION: 1. Single live fetus in breech position. 2. Amniotic fluid index and deepest vertical pocket are low-normal and are subj ectively low. Correlate with clinical factors. 3. Additional description as above. Reading Location: [id number]
[2025-01-30 16:44] VITALS: BMI 22.3
[2025-01-30 16:46] VITALS: BP 129/84; PULSE 112; PULSE 115; O2SAT 100
[2025-01-30 16:47] VITALS: RESP 15; TEMP 37.4; O2SAT 99
[2025-01-30 17:46] LABS: ROM Internal Control Test YES-OK TO RESULT pt. (Internal QC); ROM Patient Test Negative (Negative); Record Kit Lot#, ROM+ K3294
[2025-01-30] MEDS: Lactated Ringers 1,000 ML 125 ML IV (17:50)
--- NOTE | 2025-01-30 17:51 | OB.TRI.HP_ITS ---
HPI - General HPI Narrative IVANNA OZUNA, is a 39 F who presents breech presentation intact 11 cm fluid, counseled regarding options and recommend ECV. plan IOL thursday. Maternal Data Information ANDREEA Calculator Estimated Delivery Date Method Current WG Current Estimate 02/08/25 Ultrasound #1 38w 5d Other Estimates 02/16/25 LMP (Certain) 37w 4d PFSH PFSH Medical History Iron (Fe) deficiency anemia Home Medications ?Medication ?Instructions ?Recorded ?Last Taken ?Type multivitamin no.47-iron fum 27 1 cap PO DAILY 06/28/24 01/29/25 09:00 History mg-folate no.1 1 mg-dha 300 mg capsule (PNV-DHA) ferrous sulfate 325 mg (65 mg 325 mg PO DAILY 01/30/25 01/30/25 09:00 History iron) tablet (Feosol) Allergy/AdvReac Type Severity Reaction Status Date / Time No Known Allergies Allergy Verified 01/30/25 17:10 Family History Grandfather Diabetes Surgical History s/p left elbow surgery Social History adopted: No household members: spouse and children number of children: 1 current occupational status: employed 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[employer] current occupational exposures/hazards: No pets and animals: No history of recent travel: No sexually active: Yes Smoking Status: Never smoker alcohol intake: never substance use type: does not use well-balanced diet: daily or most days caffeine: No eating out: rarely or never during the past year weight has: remained stable what type of physical activity do you participate in: none antwan/shinto: None seatbelt use: always do you feel safe at home: Yes additional social history: [employer] 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 Date Name GA/Weeks Outcome Route Bth Weight Infant Gen Labor Lgth Anesthesia Del Locatn Provider FOB 04/28/20 [facility] 39 live - full term Male epi dural [facility] Delivery Date: 04/28/20 Last Updated by: Alcira Hopper 2 degree laceration Visit Details Expected Delivery Route/Plan Labor Preferences- CB/BF classes: [] labor support person: [] labor intervention preferences: [] pain management options preferred: [] cut cord/dad catch: [] : [] PP control planned: [] discussed possible routes of delivery and associated risks: [] special requests: [] Plans Covid status: [] Flu vaccine: declined Tdap vaccine: given Rhogam: na LARC form signed: yes movement and labor precautions reviewed. Problem list reviewed and updated with the most current plan of care details and appropriate orders placed. Relevant counseling for the gestational age provided. Continue routine care and follow up unless otherwise noted in visit notes/problem list details OB Flowsheet Initial Weight: 102 lb Date -?-?-?-?-?-?-?-?-?-?-?-?- EGA Weight BP Urine Prot -?-?-?-?-?-?-?-?-?-?-?-?- Glucose FHR FuHt Pres Dilation -?-?-?-?-?-?-?-?-?-?-?-?- Effaced St Visit Note 07/08/24 -?-?-?-?-?-?-?-?-?-?-?-?- 9w 2d 102 lb (+0 oz) 123/79 -?-?-?-?-?-?-?-?-?-?-?-?- 175 -?-?-?-?-?-?-?-?-?-?-?-?- KW- CRL 22.9mm n ot cons with dates. GA 9.2. declines NIPT KW- CRL 22.9mm not cons with dates. GA 9.2, ANDREEA changed declines NIPT 08/05/24 -?-?-?-?-?-?-?-?-?-?-?-?- 13w 2d 102 lb (+0 oz) 100/60 Negative -?-?-?-?-?-?-?-?-?-?-?-?- Negative 160 -?-?-?-?-?-?-?-?-?-?-?-?- SM- no vb crampi ng 08/30/24 -?-?-?-?-?-?-?-?-?-?-?-?- 16w 6d 108 lb 8 oz (+6 lb 8 oz) 108/70 Negative -?-?-?-?-?-?-?-?-?-?-?-?- Negative 147 -?-?-?-?-?-?-?-?-?-?-?-?- MH-No Vb, LOF. F eeling movement. Some off and on lower pelvic pressure. Enc jigna band 09/27/24 -?-?-?-?-?-?-?-?-?-?-?-?- 20w 6d 113 lb 8 oz (+11 lb 8 oz) 123/77 Negative -?-?-?-?-?-?-?-?-?-?-?-?- Negative 145 20 -?-?-?-?-?-?-?-?-?-?-?-?- KW- no vb/lof/ct x. good fm. normal anatomy. 10/25/24 -?-?-?-?-?-?-?-?-?-?-?-?- 24w 6d 118 lb 2 oz (+16 lb 2 oz) 102/69 Negative -?-?-?-?-?-?-?-?-?-?-?-?- Negative 145 25 -?-?-?-?-?-?-?-?-?-?-?-?- SM- no vb lof go od fm no regular ctx 11/14/24 -?-?-?-?-?-?-?-?-?-?-?-?- 27w 5d 121 lb 4 oz (+19 lb 4 oz) 127/76 Negative -?-?-?-?-?-?-?-?-?-?-?-?- Negative 140 27 -?-?-?-?-?-?-?-?-?-?-?-?- JV- no lof, vagi nal bleeding, or dec fm. tdap next visit. gct today. 11/29/24 -?-?-?-?-?-?-?-?-?-?-?-?- 29w 6d 122 lb (+20 lb) 105/64 Negative -?-?-?-?-?-?-?-?-?-?-?-?- Negative 140 30 -?-?-?-?-?-?-?-?-?-?-?-?- SM- no vb lof go od fm no regular ctx repeat cbc iron studies today tdap 12/13/24 -?-?-?-?-?-?-?-?-?-?-?-?- 31w 6d 123 lb 8 oz (+21 lb 8 oz) 104/60 Negative -?-?-?-?-?-?-?-?-?-?-?-?- Negative 152 32 -?-?-?-?-?-?-?-?-?-?-?-?- -No VB, LOF. Good Fm. Some BH CTX-not regular. Larc. Taking extra FE 12/27/24 -?-?-?-?-?-?-?-?-?-?-?-?- 33w 6d 124 lb 2 oz (+22 lb 2 oz) 122/84 Negative -?-?-?-?-?-?-?-?-?-?-?-?- Negative 145 33 -?-?-?-?--?-?-?-?-?-?-?-?- - no vb lof go od fm nor euglar ctx 01/02/25 -?-?-?-?-?-?-?-?-?-?-?-?- 34w 5d 124 lb 8 oz (+22 lb 8 oz) 128/76 Negative -?-?-?-?-?-?-?-?-?-?-?-?- Negative 152 -?-?-?-?-?-?-?-?-?-?-?-?- -work in throm bosed hemorrhoid X 2: ref gen surgery. No vag or rectal bleeding. Good FM 01/09/25 -?-?-?-?-?-?-?-?-?-?-?-?- 35w 5d 126 lb (+24 lb) 133/80 Negative -?-?-?-?-?-?-?-?-?-?-?-?- Negative 150 35 Cephalic 0 -?-?-?-?-?-?-?-?-?-?-?-?- JV- Hemorrhoids feeling better after procedure but still hurts a lot to sit. Irregular contractions. gbs collected today. 01/16/25 -?-?-?-?-?-?-?-?-?-?-?-?- 36w 5d 125 lb (+23 lb) 114/74 Negative -?-?-?-?-?-?-?-?-?-?-?-?- Negative 145 36 Cephalic -?--?-?-?-?-?-?-?-?-?-?-?- KW- no vb/lof/ct x. good fm. Hemorrhoids feeling better 01/24/25 -?-?-?-?-?-?-?-?-?-?-?-?- 37w 6d 126 lb 8 oz (+24 lb 8 oz) 116/81 Negative -?-?-?-?-?-?-?-?-?-?-?-?- Negative 140 38 Cephalic 3 -?-?-?-?-?-?-?-?-?-?-?-?- 60 -1 SM- no vb lof good fm no regular ctx 01/30/25 -?-?-?-?-?-?-?-?-?-?-?-?- 38w 5d 125 lb (+23 lb) 123/88 Negative -?-?-?-?-?-?-?-?-?-?-?-?- Negative 155 Breech 3 -?-?-?-?-?-?-?-?-?-?-?-?- 70 -1 JV- sendin g to L&D to rule out rom and for RACHANA. I am not able to appreciate a water bag and the buttocks is very much engaged and at a low station. ROS Constitutional Constitutional: Reports systems reviewed and no addt'l complaints, except as documented and as per HPI ENT HEENT: Reports systems reviewed and no addt'l complaints, except as documented Cardiovascular Cardiovascular: Reports systems reviewed and no addt'l complaints, except as documented Respiratory/Chest Respiratory/Chest: Reports systems reviewed and no addt'l complaints, except as documented Gastrointestinal Gastrointestinal: Reports as per HPI Genitourinary Genitourinary: Reports as per HPI Musculoskeletal Musculoskeletal: Reports systems reviewed and no addt'l complaints, except as documented Integumentary Integumentary: Reports systems reviewed and no addt'l complaints, except as documented Neurologic Neurologic: Reports systems reviewed and no addt'l complaints, except as documented Physical Exam Const alert, oriented x3 and no apparent distress HEENT Head and Scalp: normocephalic and atraumatic Neck full ROM and no lymphadenopathy Chest inspection of chest normal Resp normal respiratory effort GI GI Narrative: gravid, abdomen nontender, AGA Manual OB Exam: dilated, effaced and station NST FHR Rate Baby A Baseline: 130 Variability:: Moderate Accelerations:: 15 x 15 Decelerations:: None NST Reactive:: Yes FHR Category:: Category I Uterine Activity:: regular q 2-4 Assessment & Plan (1) Engagement of fetus in breech position: (2) AMA (advanced maternal age) multigravida 35+: QUALIFIERS: Trimester: second trimester Qualified Code(s): O09 .522 - Supervision of elderly multigravida, second trimester COMMENT: genetic screening offered (3) Supervision of high-risk : QUALIFIERS: Trimester: third trimester Qualified Code(s): O09.93 - Supervision of high risk , unspecified, third trimester COMMENT: PRR, , ANDREEA 02/16/25, Scooby LI Andrew, Addy (4) : QUALIFIERS: Weeks of gestation: 38 weeks Qualified Code(s): Z3A.38 - 38 weeks gestation of COMMENT: GBS neg. discussed genetic & carrier testing -undecided, normal anatomy (5) Nausea and vomiting during : PLAN: Plan 38 weeks discussed options and plan ECV now, IV placed. Charges/Coding Multi Select Codes Visit Charges Office Visit/Consults: 54648 OV L3 Est 20min Urinary/Genital Urinary/Genital CPT Codes: 69336-04 non-stress test Interp
--- NOTE | 2025-01-30 17:51 | OB.TRI.NOTE ---
HPI - General HPI Narrative IVANNA OZUNA, is a 39 F who presents breech presentation intact 11 cm fluid, counseled regarding options and recommend ECV. plan IOL thursday. Maternal Data Information ANDREEA Calculator Estimated Delivery Date Method Current WG Current Estimate 02/08/25 Ultrasound #1 38w 5d Other Estimates 02/16/25 LMP (Certain) 37w 4d PFSH PFSH Medical History Iron (Fe) deficiency anemia Home Medications ?Medication ?Instructions ?Recorded ?Last Taken ?Type multivitamin no.47-iron fum 27 1 cap PO DAILY 06/28/24 01/29/25 09:00 History mg-folate no.1 1 mg-dha 300 mg capsule (PNV-DHA) ferrous sulfate 325 mg (65 mg 325 mg PO DAILY 01/30/25 01/30/25 09:00 History iron) tablet (Feosol) Allergy/AdvReac Type Severity Reaction Status Date / Time No Known Allergies Allergy Verified 01/30/25 17:10 Family History Grandfather Diabetes Surgical History s/p left elbow surgery Social History adopted: No household members: spouse and children number of children: 1 current occupational status: employed 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[employer] current occupational exposures/hazards: No pets and animals: No history of recent travel: No sexually active: Yes Smoking Status: Never smoker alcohol intake: never substance use type: does not use well-balanced diet: daily or most days caffeine: No eating out: rarely or never during the past year weight has: remained stable what type of physical activity do you participate in: none antwan/temple: None seatbelt use: always do you feel safe at home: Yes additional social history: [employer] 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 Date Name GA/Weeks Outcome Route Bth Weight Infant Gen Labor Lgth Anesthesia Del Locatn Provider FOB 04/28/20 [place] 39 live - full term Male epidural [facility] Delivery Date: 04/28/20 Last Updated by: Alcira Hopper 2 degree laceration Visit Details Expected Delivery Route/Plan Labor Preferences- CB/BF classes: [] labor support person: [] labor intervention preferences: [] pain management options preferred: [] cut cord/dad catch: [] : [] PP control planned: [] discussed possible routes of delivery and associated risks: [] special requests: [] Plans Covid status: [] Flu vaccine: declined Tdap vaccine: given Rhogam: na LARC form signed: yes movement and labor precautions reviewed. Problem list reviewed and updated with the most current plan of care details and appropriate orders placed. Relevant counseling for the gestational age provided. Continue routine care and follow up unless otherwise noted in visit notes/problem list details OB Flowsheet Initial Weight: 102 lb Date <del>?</del> EGA Weight BP Urine Prot <del>?</del> Glucose FHR FuHt Pres Dilation <del>?</del> Effaced St Visit Note 07/08/24 <del>?</del> 9w 2d 102 lb (+0 oz) 123/79 <del>?</del> 175 <del>?</del> KW- CRL 22.9mm not cons with dates. GA 9.2. declines NIPT KW- CRL 22.9mm not cons with dates. GA 9.2, ANDREEA changed declines NIPT 08/05/24 <del>?</del> 13w 2d 102 lb (+0 oz) 100/60 Negative <del>?</del> Negative 160 <del>?</del> SM- no vb cramping 08/30/24 <del>?</del> 16w 6d 108 lb 8 oz (+6 lb 8 oz) 108/70 Negative <del>?</del> Negative 147 <del>?</del> MH-No Vb, LOF. Feeling movement. Some off and on lower pelvic pressure. Enc jigna band 09/27/24 <del>?</del> 20w 6d 113 lb 8 oz (+11 lb 8 oz) 123/77 Negative <del>?</del> Negative 145 20 <del>?</del> KW- no vb/lof/ctx. good fm. normal anatomy. 10/25/24 <del>?</del> 24w 6d 118 lb 2 oz (+16 lb 2 oz) 102/69 Negative <del>?</del> Negative 145 25 <del>?</del> SM- no vb lof good fm no regular ctx 11/14/24 <del>?</del> 27w 5d 121 lb 4 oz (+19 lb 4 oz) 127/76 Negative <del>?</del> Negative 140 27 <del>?</del> JV- no lof, vaginal bleeding, or dec fm. tdap next visit. gct today. 11/29/24 <del>?</del> 29w 6d 122 lb (+20 lb) 105/64 Negative <del>?</del> Negative 140 30 <del>?</del> SM- no vb lof good fm no regular ctx repeat cbc iron studies today tdap 12/13/24 <del>?</del> 31w 6d 123 lb 8 oz (+21 lb 8 oz) 104/60 Negative <del>?</del> Negative 152 32 <del>?</del> MH-No VB, LOF. Good Fm. Some BH CTX-not regular. Larc. Taking extra FE 12/27/24 <del>?</del> 33w 6d 124 lb 2 oz (+22 lb 2 oz) 122/84 Negative <del>?</del> Negative 145 33 <del>?</del> SM- no vb lof good fm nor euglar ctx 01/02/25 <del>?</del> 34w 5d 124 lb 8 oz (+22 lb 8 oz) 128/76 Negative <del>?</del> Negative 152 <del>?</del> -work in thrombosed hemorrhoid X 2: ref gen surgery. No vag or rectal bleeding. Good FM 01/09/25 <del>?</del> 35w 5d 126 lb (+24 lb) 133/80 Negative <del>?</del> Negative 150 35 Cephalic 0 <del>?</del> JV- Hemorrhoids feeling better after procedure but still hurts a lot to sit. Irregular contractions. gbs collected today. 01/16/25 <del>?</del> 36w 5d 125 lb (+23 lb) 114/74 Negative <del>?</del> Negative 145 36 Cephalic <del>?</del> KW- no vb/lof/ctx. good fm. Hemorrhoids feeling better 01/24/25 <del>?</del> 37w 6d 126 lb 8 oz (+24 lb 8 oz) 116/81 Negative <del>?</del> Negative 140 38 Cephalic 3 <del>?</del> 60 -1 SM- no vb lof good fm no regular ctx 01/30/25 <del>?</del> 38w 5d 125 lb (+23 lb) 123/88 Negative <del>?</del> Negative 155 Breech 3 <del>?</del> 70 -1 JV- sending to L&D to rule out rom and for RACHANA. I am not able to appreciate a water bag and the buttocks is very much engaged and at a low station. ROS Constitutional Constitutional: Reports systems reviewed and no addt'l complaints, except as documented and as per HPI ENT HEENT: Reports systems reviewed and no addt'l complaints, except as documented Cardiovascular Cardiovascular: Reports systems reviewed and no addt'l complaints, except as documented Respiratory/Chest Respiratory/Chest: Reports systems reviewed and no addt'l complaints, except as documented Gastrointestinal Gastrointestinal: Reports as per HPI Genitourinary Genitourinary: Reports as per HPI Musculoskeletal Musculoskeletal: Reports systems reviewed and no addt'l complaints, except as documented Integumentary Integumentary: Reports systems reviewed and no addt'l complaints, except as documented Neurologic Neurologic: Reports systems reviewed and no addt'l complaints, except as documented Physical Exam Const alert, oriented x3 and no apparent distress HEENT Head and Scalp: normocephalic and atraumatic Neck full ROM and no lymphadenopathy Chest inspection of chest normal Resp normal respiratory effort GI GI Narrative: gravid, abdomen nontender, AGA Manual OB Exam: dilated, effaced and station NST FHR Rate Baby A Baseline: 130 Variability:: Moderate Accelerations:: 15 x 15 Decelerations:: None NST Reactive:: Yes FHR Category:: Category I Uterine Activity:: regular q 2-4 Assessment & Plan (1) Engagement of fetus in breech position: (2) AMA (advanced maternal age) multigravida 35+: QUALIFIERS: Trimester: second trimester Qualified Code(s): O09.522 - Supervision of elderly multigravida, second trimester COMMENT: genetic screening offered (3) Supervision of high-risk : QUALIFIERS: Trimester: third trimester Qualified Code(s): O09.93 - Supervision of high risk , unspecified, third trimester COMMENT: PRR, , ANDREEA 02/16/25, Scooby LI Andrew, Addy (4) : QUALIFIERS: Weeks of gestation: 38 weeks Qualified Code(s): Z3A.38 - 38 weeks gestation of COMMENT: GBS neg. discussed genetic & carrier testing -undecided, normal anatomy (5) Nausea and vomiting during : PLAN: Plan 38 weeks discussed options and plan ECV now, IV placed. Charges/Coding Multi Select Codes Visit Charges Office Visit/Consults: 91648 OV L3 Est 20min Urinary/Genital Urinary/Genital CPT Codes: 30208-65 non-stress test Interp
--- NOTE | 2025-01-30 17:53 | OP.PCM_ITS ---
Procedures Urinary/Genital 52xxx-[id number]: 58443 ECV Operative Report (Standard) Operative Information Date of Procedure: 01/30/25 Pre-Operative Diagnosis: breech Post-Operative Diagnosis: vertex Surgery/Procedure Performed: external cephalic version newspaper editor: No Type of Anesthesia: None Procedure Start Time: 17:00 Procedure Stop Time: 17:10 Select all DRAINS/GRAFTS/IMPLANTS that apply: None Estimated Blood Loss: 0 Specimen collected: No Description of surgery: The fetus was found to be in breech presentation informed by ultrasound. Patient had an IV in place, normal amniotic fluid, no contraindications to a vaginal delivery, and reactive nonstress test prior to the procedure. Patient was placed in the dorsal supine position after the terbutaline was given. Ultrasound gel was applied to the patient's abdomen and using constant upward pressure to elevate the buttocks out of the pelvic inlet constant pressure was applied to the buttocks and to the area behind the back of the neck and head to encourage a forward roll of the fetus. Constant pressure was applied and slowly the was converted to a vertex presentation with a forward roll. Bedside ultrasound was used to confirm vertex presentation and reassuring heart rate. Patient was replaced on the NST and monitored to assure reassuring status. No complications. Surgical Findings: none Complications Complications: No
[2025-01-30] MEDS: Terbutaline 1 MG/ML Vial 0.25 MG SC (18:12)
[2025-01-30 18:18] LABS: Hematocrit 35.6 % (37-47); Mean Corp Hgb Conc 33.7 g/dL (32-36); Mean Corpuscular Hgb 29.7 pg (27.0-32.0); Mean Corpuscular Volume 88.1 fL (81-99); Mean Platelet Vol. 10.8 fl (6.2-12.0); Platelet Count 185 K/mm3 (150-450); RBC Distribution Width CV 13.9 % (11.6-14.6); RBC Distribution Width SD 44.3 fl (35.1-43.9); Red Blood Count 4.04 M/mm3 (4.2-5.4); White Blood Count 9.1 K/mm3 (4.4-11.0)
[2025-01-30 19:42] VITALS: BP 118/59; PULSE 102; PULSE 159; O2SAT 87
== END 2025-01-30 20:33 | disposition home or self-care (01) ==
LOC: WPOUT 16:35 → WP 16:36
PROVIDERS: Obstetrics & Gynecology; Referring Provider Advanced Practice Midwife; Visit Provider Advanced Practice Midwife
DX: O32.1XX0 Maternal care for breech presentation, not applicable or unspecified (principal); O09.523 Supervision of elderly multigravida, third trimester; Z3A.38 38 weeks gestation of pregnancy
CPT/HCPCS: 59412; 36415; 59025; 59050; 76815; 84112; 85027; 86850; 86900; 86901; 96372; 99221; G0378

== ENCOUNTER 2025-02-01 15:50 | Inpatient (IN) | payer BC, SELFPAY ==
[2025-02-01] VITALS (39 sets, daily range): BP systolic 106–137; BP diastolic 51–87; PULSE 82–114; RESP 16–18; TEMP 36.1–37.1; O2SAT 86–100; BMI 22.5
[2025-02-01 16:46] LABS: Absolute Lymphocyte Count 1.84 X10^3/uL (0.83-4.51); Absolute Neutrophil Count 9.3 X10^3/uL (2.0-7.7); Basophil# 0.03 X10^3/uL; Basophil% 0.2 % (0-1); Eosinophil# 0.03 X10^3/uL; Eosinophils% 0.2 % (0-5); Hematocrit 32.7 % (37-47); Hemoglobin 10.9 g/dL (12.0-15.0); Lymphocyte # 1.84 X10^3/ul (0.83-4.51); Lymphocyte % 15.1 % (19-41); Mean Corp Hgb Conc 33.3 g/dL (32-36); Mean Corpuscular Hgb 29.7 pg (27.0-32.0); Mean Corpuscular Volume 89.1 fL (81-99); Mean Platelet Vol. 10.9 fl (6.2-12.0); Monocyte# 0.94 X10^3/uL; Monocyte% 7.7 % (0-10); NRBC Flagged by Analyzer 0 % (0-5); Neutrophil # 9.27 X10^3/uL (2.7-7.7); Neutrophil % 76.3 % (47-70); Platelet Count 173 K/mm3 (150-450); RBC Distribution Width CV 14.1 % (11.6-14.6); RBC Distribution Width SD 45.6 fl (35.1-43.9); Red Blood Count 3.67 M/mm3 (4.2-5.4); White Blood Count 12.2 K/mm3 (4.4-11.0)
[2025-02-01] MEDS: Lactated Ringers 1,000 ML 50 ML IV (17:00)
[2025-02-01] MEDS: Oxytocin 15 Units/NS 250ml 15 UNITS/250 ML IV.SOLN 2 UNITS IV (17:00)
[2025-02-01 19:33] LABS: Syphilis Antibodies Nonreactive (Nonreactive)
[2025-02-01] MEDS: Lactated Ringers 1,000 ML 999 ML IV (20:05)
[2025-02-01] MEDS: fentaNYL-bupivacaine (epidural) 100 ML BAG EPIDURAL (20:50)
--- NOTE | 2025-02-01 21:19 | HP.PCM.OB_ITS ---
HPI - General General Date of Admission: 02/01/25 HPI Narrative IVANNA OZUNA, is a 39 F who presents for IOL ama no vb lof good fm n oeruglar ctx vertex on scan today Maternal Data Information ANDREEA Calculator Estimated Delivery Date Method Current WG Current Estimate 02/08/25 Ultrasound #1 39w 0d Other Estimates 02/16/25 LMP (Certain) 37w 6d PFSH PFSH Medical History Iron (Fe) deficiency anemia Home Medications ?Medication ?Instructions ?Recorded ?Last Taken ?Type multivitamin no.47-iron fum 27 1 cap PO DAILY PRN preg el 06/28/24 01/31/25 History mg-folate no.1 1 mg-dha 300 mg capsule (PNV-DHA) ferrous sulfate 325 mg (65 mg 325 mg PO DAILY pregnanc y 01/30/25 02/01/25 History iron) tablet (Feosol) Allergy/AdvReac Type Severity Reaction Status Date / Time No Known Allergies Allergy Verified 02/01/25 16:57 Family History Grandfather Diabetes Surgical History s/p left elbow surgery Social History adopted: No household members: spouse and children number of children: 1 current occupational status: employed 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 Date Name GA/Weeks Outcome Route Bth Weight Gen Labor Lgth Anesthesia Del Locatn Provider FOB 04/28/20 [place] 39 live - full term Male epi dural [facility] Delivery Date: 04/28/20 Last Updated by: Alcira Hopper 2 degree laceration Visit Details Expected Delivery Route/Plan Labor Preferences- CB/BF classes: [] labor support person: [] labor intervention preferences: [] pain management options preferred: [] cut cord/dad catch: [] : [] PP control planned: [] discussed possible routes of delivery and associated risks: [] special requests: [] Plans Covid status: [] Flu vaccine: declined Tdap vaccine: given Rhogam: na LARC form signed: yes movement and labor precautions reviewed. Problem list reviewed and updated with the most current plan of care details and appropriate orders placed. Relevant counseling for the gestational age provided. Continue routine care and follow up unless otherwise noted in visit notes/problem list details OB Flowsheet Initial Weight: 102 lb Date -?-?-?-?-?-?-?-?-?-?-?-?- EGA Weight BP Urine Prot -?-?-?-?-?-?-?-?-?-?-?-?- Glucose FHR FuHt Pres Dilation -?-?-?-?-?-?-?-?-?-?-?-?- Effaced St Visit Note 07/08/24 -?-?-?-?-?-?-?-?-?-?-?-?- 9w 2d 102 lb (+0 oz) 123/79 -?-?-?-?-?-?-?-?-?-?-?-?- 175 -?-?-?-?-?-?-?-?-?-?-?-?- KW- CRL 22.9mm n ot cons with dates. GA 9.2. declines NIPT KW- CRL 22.9mm not cons with dates. GA 9.2, ANDREEA changed declines NIPT 08/05/24 -?-?-?-?-?-?-?-?-?-?-?-?- 13w 2d 102 lb (+0 oz) 100/60 Negative -?-?-?-?-?-?-?-?-?-?-?-?- Negative 160 -?-?-?-?-?-?-?-?-?-?-?-?- SM- no vb crampi ng 08/30/24 -?-?-?-?-?-?-?-?-?-?-?-?- 16w 6d 108 lb 8 oz (+6 lb 8 oz) 108/70 Negative -?-?-?-?-?-?-?-?-?-?-?-?- Negative 147 -?-?-?-?-?-?-?-?-?-?-?-?- MH-No Vb, LOF. F eeling movement. Some off and on lower pelvic pressure. Enc jigna band 09/27/24 -?-?-?-?-?-?-?-?-?-?-?-?- 20w 6d 113 lb 8 oz (+11 lb 8 oz) 123/77 Negative -?-?-?-?-?-?-?-?-?-?-?-?- Negative 145 20 -?-?-?-?-?-?-?-?-?-?-?-?- KW- no vb/lof/ct x. good fm. normal anatomy. 10/25/24 -?-?-?-?-?-?-?-?-?-?-?-?- 24w 6d 118 lb 2 oz (+16 lb 2 oz) 102/69 Negative -?-?-?-?-?-?-?-?-?-?-?-?- Negative 145 25 -?-?-?-?-?-?-?--?-?-?-?-?- SM- no vb lof go od fm no regular ctx 11/14/24 -?-?-?-?-?-?-?-?-?-?-?-?- 27w 5d 121 lb 4 oz (+19 lb 4 oz) 127/76 Negative -?-?-?-?-?-?-?-?-?-?-?-?- Negative 140 27 -?-?-?-?-?-?-?-?-?-?-?-?- JV- no lof, vagi nal bleeding, or dec fm. tdap next visit. gct today. 11/29/24 -?-?-?-?-?-?-?-?-?-?-?-?- 29w 6d 122 lb (+20 lb) 105/64 Negative -?-?-?-?-?-?-?-?-?-?-?-?- Negative 140 30 -?-?-?-?-?-?-?--?-?-?-?-?- SM- no vb lof go od fm no regular ctx repeat cbc iron studies today tdap 12/13/24 -?-?-?-?-?-?-?-?-?-?-?-?- 31w 6d 123 lb 8 oz (+21 lb 8 oz) 104/60 Negative -?-?-?-?-?-?-?-?-?-?-?-?- Negative 152 32 -?-?-?-?-?-?-?-?-?-?-?-?- -No VB, LOF. Good Fm. Some BH CTX-not regular. Larc. Taking extra FE 12/27/24 -?-?-?-?-?-?-?-?-?-?-?-?- 33w 6d 124 lb 2 oz (+22 lb 2 oz) 122/84 Negative -?-?-?-?-?-?-?-?-?-?-?-?- Negative 145 33 -?-?-?-?-?-?-?-?-?-?-?-?- SM- no vb lof go od fm nor euglar ctx 01/02/25 -?-?-?-?-?-?-?-?-?-?-?-?- 34w 5d 124 lb 8 oz (+22 lb 8 oz) 128/76 Negative -?-?-?-?-?-?-?-?-?-?-?-?- Negative 152 -?-?-?-?-?-?-?-?-?-?-?-?- -work in throm bosed hemorrhoid X 2: ref gen surgery. No vag or rectal bleeding. Good FM 01/09/25 -?-?-?-?-?-?-?-?-?-?-?-?- 35w 5d 126 lb (+24 lb) 133/80 Negative -?-?-?-?-?-?-?-?-?--?-?-?- Negative 150 35 Cephalic 0 -?-?-?-?-?-?-?-?-?-?-?-?- JV- Hemorrhoids feeling better after procedure but still hurts a lot to sit. Irregular contractions. gbs collected today. 01/16/25 -?-?-?-?-?-?-?-?-?-?-?-?- 36w 5d 125 lb (+23 lb) 114/74 Negative -?-?-?-?-?-?-?-?-?-?-?-?- Negative 145 36 Cephalic -?-?-?-?-?-?-?-?-?-?-?-?- KW- no vb/lof/ct x. good fm. Hemorrhoids feeling better 01/24/25 -?-?-?-?-?-?-?-?-?-?-?-?- 37w 6d 126 lb 8 oz (+24 lb 8 oz) 116/81 Negative -?-?-?-?-?-?-?-?-?-?-?-?- Negative 140 38 Cephalic 3 -?-?-?-?-?-?-?-?-?-?-?-?- 60 -1 SM- no vb lof good fm no regular ctx 01/30/25 -?-?-?-?-?-?-?-?-?-?-?-?- 38w 5d 125 lb (+23 lb) 123/88 Negative -?-?-?-?-?-?-?-?-?-?-?-?- Negative 155 Breech 3 -?-?-?-?-?-?-?-?-?-?-?-?- 70 -1 JV- sendin g to L&D to rule out rom and for RACHANA. I am not able to appreciate a water bag and the buttocks is very much engaged and at a low station. 02/01/25 -?-?-?-?-?-?-?-?-?-?-?-?- 39w 0d 126 lb 6 oz (+24 lb 6 oz) 126/84 Negative -?-?-?-?-?-?-?--?-?-?-?-?- Negative 150 Cephalic 3.5 -?-?-?-?-?-?-?-?-?-?-?-?- 70 -1 SM- no vb lof good fm irregular ctx NST reactive NST FHR Rate Baby A Baseline: 130 Variability:: Moderate Accelerations:: 15 x 15 Decelerations:: None NST Reactive:: Yes FHR Category:: Category I Uterine Activity:: irregular ROS Constitutional Constitutional: Reports systems reviewed and no addt'l complaints, except as documented Eyes Eyes: Denies change in vision ENT HEENT: Reports systems reviewed and no addt'l complaints, except as documented; Denies headache(s) Cardiovascular Cardiovascular: Reports systems reviewed and no addt'l complaints, except as documented; Denies chest pain or dyspnea Respiratory/Chest Respiratory/Chest: Reports systems reviewed and no addt'l complaints, except as documented Gastrointestinal Gastrointestinal: Reports systems reviewed and no addt'l complaints, except as documented; Denies abdominal pain Genitourinary Genitourinary: Reports systems reviewed and no addt'l complaints, except as documented, contractions Details: present (irregular) and movement Details: present; Denies dysuria or genital lesions Musculoskeletal Musculoskeletal: Reports systems reviewed and no addt'l complaints, except as documented Neurologic Neurologic: Reports systems reviewed and no addt'l complaints, except as documented Endocrine Endocrinology: Reports systems reviewed and no addt'l complaints, except as documented Vital Signs Vital Signs Vital Signs: 02/01/25 16:13 02/01/25 16:13 02/01/25 16:13 Temperature Temperature Source Pulse Rate 110 H 104 H Respiratory Rate Blood Pressure 126/79 H BP Systolic 126 BP Diastolic 79 Pulse Ox 02/01/25 16:13 02/01/25 16:13 02/01/25 18:28 Temperature Temperature Source Pulse Rate Respiratory Rate 16 Blood Pressure 124/68 H BP Systolic 124 BP Diastolic 68 Pulse Ox 99 02/01/25 18:28 02/01/25 18:28 02/01/25 18:28 Temperature Temperature Source Temporal Pulse Rate 97 96 Respiratory Rate Blood Pressure BP Systolic BP Diastolic Pulse Ox 02/01/25 18:28 02/01/25 18:28 02/01/25 19:16 Temperature 98.8 F Temperature Source Temporal Pulse Rate Respiratory Rate Blood Pressure BP Systolic BP Diastolic Pulse Ox 98 02/01/25 19:16 02/01/25 19:16 02/01/25 19:18 Temperature 98.5 F Temperature Source Pulse Rate Respiratory Rate 16 Blood Pressure 131/68 H BP Systolic 131 BP Diastolic 68 Pulse Ox 02/01/25 19:18 02/01/25 20:26 02/01/25 20:26 Temperature Temperature Source Pulse Rate 102 H 111 H Respiratory Rate Blood Pressure BP Systolic BP Diastolic Pulse Ox 100 02/01/25 20:27 02/01/25 20:27 02/01/25 20:31 Temperature Temperature Source Pulse Rate 104 H 102 H Respiratory Rate Blood Pressure 137/81 H BP Systolic 137 BP Diastolic 81 Pulse Ox 02/01/25 20:31 02/01/25 20:33 02/01/25 20:33 Temperature Temperature Source Pulse Rate 107 H Respiratory Rate Blood Pressure 134/85 H BP Systolic 134 BP Diastolic 85 Pulse Ox 100 02/01/25 20:36 02/01/25 20:36 02/01/25 20:37 Temperature Temperature Source Pulse Rate 96 Respiratory Rate Blood Pressure 131/81 H BP Systolic 131 BP Diastolic 81 Pulse Ox 100 02/01/25 20:37 02/01/25 20:39 02/01/25 20:39 Temperature Temperature Source Pulse Rate 90 97 Respiratory Rate Blood Pressure 120/87 H BP Systolic 120 BP Diastolic 87 Pulse Ox 02/01/25 20:41 02/01/25 20:41 02/01/25 20:43 Temperature Temperature Source Pulse Rate 100 Respiratory Rate Blood Pressure 136/64 H BP Systolic 136 BP Diastolic 64 Pulse Ox 100 02/01/25 20:43 02/01/25 20:48 02/01/25 20:48 Temperature Temperature Source Pulse Rate 96 93 Respiratory Rate Blood Pressure 127/66 H BP Systolic 127 BP Diastolic 66 Pulse Ox 02/01/25 20:49 02/01/25 20:49 02/01/25 20:52 Temperature Temperature Source Pulse Rate 91 Respiratory Rate Blood Pressure 122/68 H BP Systolic 122 BP Diastolic 68 Pulse Ox 100 02/01/25 20:52 02/01/25 20:54 02/01/25 20:54 Temperature Temperature Source Pulse Rate 96 100 Respiratory Rate Blood Pressure BP Systolic BP Diastolic Pulse Ox 100 02/01/25 20:57 02/01/25 20:57 02/01/25 20:59 Temperature Temperature Source Pulse Rate 95 97 Respiratory Rate Blood Pressure 120/65 BP Systolic 120 BP Diastolic 65 Pulse Ox 02/01/25 20:59 02/01/25 21:02 02/01/25 21:02 Temperature Temperature Source Pulse Rate 93 Respiratory Rate Blood Pressure 121/65 H BP Systolic 121 BP Diastolic 65 Pulse Ox 100 02/01/25 21:04 02/01/25 21:04 02/01/25 21:04 Temperature Temperature Source Pulse Rate 94 94 Respiratory Rate Blood Pressure BP Systolic BP Diastolic Pulse Ox 86 02/01/25 21:04 02/01/25 21:07 02/01/25 21:07 Temperature Temperature Source Pulse Rate 90 Respiratory Rate Blood Pressure 120/63 BP Systolic 120 BP Diastolic 63 Pulse Ox 100 02/01/25 21:09 02/01/25 21:09 02/01/25 21:12 Temperature Temperature Source Pulse Rate 102 H Respiratory Rate Blood Pressure 116/71 BP Systolic 116 BP Diastolic 71 Pulse Ox 100 02/01/25 21:12 02/01/25 21:14 02/01/25 21:14 Temperature Temperature Source Pulse Rate 91 91 Respiratory Rate Blood Pressure BP Systolic BP Diastolic Pulse Ox 100 02/01/25 21:17 02/01/25 21:17 Temperature Temperature Source Pulse Rate 96 Respiratory Rate Blood Pressure 123/73 H BP Systolic 123 BP Diastolic 73 Pulse Ox Weight Weight: 127 lb 6.4 oz Body Mass Index (BMI) 22.5 Physical Exam Const alert, oriented x3, no apparent distress and healthy appearing HEENT normocephalic and moist oral mucous membranes Head and Scalp: atraumatic Neck full ROM, no lymphadenopathy, supple and thyroid normal General: trachea midline Lymph Lymphatic: no lymphadenopathy noted Chest inspection of chest normal Resp normal respiratory effort Cardio regular rate GI soft to palpation and non-tender GI Narrative: gravid Inspection: gravid external exam normal Manual OB Exam: estimated gestational size appropriate, presentation cephalic, dilated, effaced and station Extremity normal to inspection General Extremity: Negative for edema Skin no rashes or lesions noted Neuro no focal motor deficits and deep tendon reflexes 2+ bilaterally Motor Exam: strength 5/5 throughout and clonus absent Psych mental status grossly normal Labs Labs Labs: Blood Type O POSITIVE Antibody Screen NEGATIVE Hct 32.7 % (37-47) L Hgb 10.9 g/dL (12.0-15.0) L Obstetrics Ultrasound Syphilis Total Ab Nonreactive (Nonreactive) Rubella IgG Antibody Reactive (Nonreactive) Hep Bs Antigen Non-Reactive (Nonreactive) Hepatitis C Antibody Non-Reactive (Nonreactive) Chlamydia DNA (MARTITA) Negative (Negative) N.gonorrhoeae DNA (MARTITA) Negative (Negative) HIV 1&2 Antibody Non-Reactive (Nonreactive) Glucose 1 Hr 50 gm 148 mg/dL (70-140) H Gest Glucose Tolerance MG/DL Rhogam given: No Assessment & Plan (1) : QUALIFIERS: Weeks of gestation: 39 weeks Qualified Code(s): Z3A.39 - 39 weeks gestation of COMMENT: GBS neg. discussed genetic & carrier testing -undecided, normal anatomy (2) AMA (advanced maternal age) multigravida 35+: QUALIFIERS: Trimester: second trimester Qualified Code(s): O09.522 - Supervision of elderly multigravida, second trimester COMMENT: genetic screening offered (3) Supervision of high-risk : QUALIFIERS: Trimester: third trimester Qualified Code(s): O09.93 - Supervision of high risk , unspecified, third trimester COMMENT: PRR, , ANDREEA 02/16/25, Scooby LI Andrew, Addy PLAN: Plan admit and IOL pitocin
--- NOTE | 2025-02-01 23:41 | EX.PCM.OBVAG ---
Assessment & Plan (1) Thrombosed external hemorrhoid: (2) Anemia affecting : QUALIFIERS: Trimester: third trimester Qualified Code(s): O99.013 - Anemia complicating , third trimester COMMENT: Repeat CBC & Iron Studies 11/29/24.Stable (3) Abnormal glucose affecting : COMMENT: 3 hour GTT nl (4) AMA (advanced maternal age) multigravida 35+: QUALIFIERS: Trimester: second trimester Qualified Code(s): O09.522 - Supervision of elderly multigravida, second trimester COMMENT: genetic screening offered (5) Supervision of high-risk : QUALIFIERS: Trimester: third trimester Qualified Code(s): O09.93 - Supervision of high risk , unspecified, third trimester COMMENT: PRR, , ANDREEA 02/16/25, Scooby LI Andrew, Addy (6) : QUALIFIERS: Weeks of gestation: 39 weeks Qualified Code(s): Z3A.39 - 39 weeks gestation of COMMENT: GBS neg. discussed genetic & carrier testing -undecided, normal anatomy (7) Nausea and vomiting during : (8) High risk human papillomavirus (HPV) detected: (9) LGSIL on Pap smear of cervix: Maternal Data Information ANDREEA Calculator Estimated Delivery Date Method Current WG Current Estimate 02/08/25 Ultrasound #1 39w 1d Other Estimates 02/16/25 LMP (Certain) 38w 0d Vaginal Delivery Maternal Presentation Maternal Presentation: see assessment and plan Vaginal Delivery Information Procedure Performed: Spontaneous Vaginal Delivery Surgeon/Practitioner: Maria Fernanda Marquez Pre-Procedure Diagnosis: see assessment and plan Post-Procedure Diagnosis: same Type of anesthesia: Epidural Findings Description of procedure: Patient began pushing and delivered the head in the FREDIS presentation. The head was delivered atraumatically. The anterior and posterior shoulders delivered without complication followed by the rest of the and the was placed on the maternal abdomen. Delayed cord clamping was employed for approximately 60 seconds. Cord was clamped and cut and gentle traction was applied to the cord and the placenta delivered spontaneously immediately following it was noted to be intact with three-vessel cord. The perineum and vagina were inspected and was noted to have a second -degree laceration that was repaired in the usual fashion with 3-0 vicryl rapide . EBL was 300. Patient and infant tolerated delivery well. Presentation: Vertex Placental Delivery Description: Spontaneous Specimen collected: Yes Description of specimen(s) removed: placenta Manager Video Games incident commander: No Post Vaginal Deli Medications given after delivery: Other (pitocin) Complication Complications: No Multi Select Codes Urinary/Genital Urinary/Genital CPT Codes: 54324 Vaginal Delivery [facility]
--- NOTE | 2025-02-01 23:54 | DCINST_ITS ---
Discharge Instructions Diet Discharge Diet: No restrictions DC O2, CPAP, BIPAP needs Home O2 Discharge instructions: No Dressing / Incision Discharge Activity: Return to Normal Activity, May Not Drive (while taking narcotic pain medications.) and May Shower May resume sexual activity in: 4-6 weeks Dressing / Incision Call your doctor if your incision/area has: Continuous Slow Oozing, Sudden Increased Bleeding, Increased Pain/ Swelling, Increased Redness and Foul Smelling Discharge Follow Up Care Please Follow Up With: Maria Fernanda Marquez MD When: Call [phone] to make an appointment with your doctor in 6 weeks. If you had elevated blood pressure or 4th degree laceration, you will need to be seen in 2 weeks. Test Results: Test results from this visit will be discussed in further detail at your follow- up appointment, if applicable. Discharge Plan Admission Admit Date/Time: 02/01/25 15:50 Attending Provider: Maria Fernanda Marquez Primary Care Provider: Care Physician,No Primary Discharge Orders/Prescriptions Prescriptions: No Action PNV-DHA 27 mg iron-1 mg -300 mg capsule 1 cap PO DAILY PRN (Reason: ) ferrous sulfate [Feosol] 325 mg (65 mg iron) tablet 325 mg PO DAILY Referrals / Follow Up: Care Physician,No Primary [Primary Care Provider] - Disposition Disposition (needs filled in before D/C Order can be placed): Home, Self Care
[2025-02-02] VITALS (39 sets, daily range): BP systolic 90–128; BP diastolic 50–86; PULSE 82–136; RESP 16–18; TEMP 36.3–36.7; O2SAT 94–100
[2025-02-02] MEDS: Oxytocin 15 Units/NS 250ml 15 UNITS/250 ML IV.SOLN 334 UNITS IV (00:39)
[2025-02-02] MEDS: Oxytocin 15 Units/NS 250ml 15 UNITS/250 ML IV.SOLN 83 UNITS IV (01:25)
[2025-02-02] MEDS: Acetaminophen 500 MG Tablet 1000 MG PO (05:17)
--- NOTE | 2025-02-02 05:20 | NURSING ---
This RN assisted patient to the bathroom after delivery. Epidural not completely worn off so this RN assisted to BR in wheelchair and patient tolerated well. Once on toilet, patient began to get lightheaded, diaphoretic and pale. Patient then fainted but remained upright and support by this RN. Returned to consciousness quickly by smelling alcohol swab and then drank 4oz of apple juice. Assisted patient back to bed, vitals WNL and patient feeling better. Brought food and drink to patient's room. Epidural catheter removed, blue tip intact.
--- NOTE | 2025-02-02 05:50 | NURSING ---
When asking the PHQ2 questions, RN asked the question in the past two weeks have you felt little pleasure in doing things, down or depressed the patient answered Yes. RN asked the patient again, the patient stated Yes. When doing the PHQ9 the first question is the same, the patient answered no. The RN then explained the question again in different terms. The patient stated that she misunderstood the question and that she has had pleasure in doing things and doesn't feel depressed or down. RN verbalized understanding and canceled orders.
[2025-02-02] MEDS: Naproxen 500 MG Tablet PO ×2 (14:25→23:15)
[2025-02-03 01:00] VITALS: BP 115/55; PULSE 88; RESP 16; TEMP 36.4; O2SAT 100
[2025-02-03 01:02] VITALS: BP 115/55; PULSE 83
[2025-02-03 08:10] VITALS: BP 107/68; PULSE 77; RESP 16; TEMP 36.6
[2025-02-03 08:23] VITALS: BP 107/68; PULSE 77
--- NOTE | 2025-02-03 08:49 | PCM.PN.CNM ---
Subjective Subjective Patient doing well without complaints. Tolerating PO. Ambulating and voiding without difficulty. Feeding well. Denies chest pain, shortness of breath, calf pain/swelling, fevers, chills, lightheadedness. Objective Data Objective Data Vital Signs: Vital Signs Temp Pulse Resp BP Pulse Ox O2 Del Method 97.5 F L 77 16 107/68 100 Room Air 02/03/25 01:00 02/03/25 08:23 02/03/25 01:00 02/03/25 08:23 02/03/25 01:00 02/03/25 01:00 Oxygen Delivery Method Room Air Weight: 127 lb 6.4 oz Body Mass Index (BMI) 22.5 Intake & Output: Intake and Output for Last 24 Hours 02/01/25 02/02/25 02/03/25 23:59 23:59 23:59 Intake Total 1270.23 / 1270.23 1063.46 / 1063.46 Output Total 200 / 200 3080 / 3080 Balance 1070.23 / 1070.23 -54 / - Lab / Micro Data 02/01/25 16:35 Physical Exam Const alert and oriented x3 Chest inspection of chest normal and inspection of breasts normal Resp normal respiratory effort, normal air movement and no retractions Cardio regular rate and regular rhythm GI normal to inspection, nondistended, normoactive bowel sounds Uterus Palpation: uterus fundus firm Extremity normal to inspection, full ROM and no calf tenderness Skin no rashes or lesions noted Psych mental status grossly normal Assessment & Plan (1) Vaginal delivery: PLAN: s/p PPD # 1 1. routine post delivery care 2. breast feeding- support given 3. rh positive 4. rubella immune 5. d/c home today
--- NOTE | 2025-02-08 16:10 | NURSING ---
Follow up phone call attempted, patient did not answer LVM.
== END 2025-02-03 11:25 | disposition home or self-care (01) | DRG 806 ==
PROVIDERS: Admitting Provider Obstetrics & Gynecology; Referring Provider Obstetrics & Gynecology; Visit Provider Obstetrics & Gynecology
DX: O99.02 Anemia complicating childbirth (principal); Z37.0 Single live birth; O87.2 Hemorrhoids in the puerperium; D50.9 Iron deficiency anemia, unspecified; Z3A.39 39 weeks gestation of pregnancy; O70.1 Second degree perineal laceration during delivery
CPT/HCPCS: 59025; 59050; 85025; 86780; 86850; 86900; 86901; 99221; G0378

== ENCOUNTER → 2025-03-24 | Outpatient (CLI) | payer BC, SELFPAY | END | disposition home or self-care (01) | LOC: LABSPEC 14:27 | PROVIDERS: Referring Provider Obstetrics & Gynecology; Visit Provider Obstetrics & Gynecology | DX: Z12.4 Encounter for screening for malignant neoplasm of cervix (principal) | CPT/HCPCS: 87624; 88175; G0145 ==

== ENCOUNTER 2025-04-04 09:31 | Day surgery (SDC) | payer BC, SELFPAY ==
[2025-04-04] VITALS (8 sets, daily range): BP systolic 98–119; BP diastolic 60–81; PULSE 63–99; RESP 16; TEMP 36.1–37.1; O2SAT 98–100; BMI 18.3
--- NOTE | 2025-04-04 07:45 | PCM.HP.BLA ---
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 Is patient in pain?: No Allergies No Known Allergies Allergy (Verified 03/24/25 11:31) Medications ?Medication ?Instructions ?Recorded ?Confirmed ?Type multivitamin no.47-iron fum 27 1 cap PO DAILY PRN 06/28/24 03/24/25 History mg-folate no.1 1 mg-dha 300 mg capsule (PNV-DHA) ferrous sulfate 325 mg (65 mg 325 mg PO DAILY 01/30/25 03/24/25 History iron) tablet (Feosol) : Yes [facility] Medical History Iron (Fe) deficiency anemia Surgical History s/p left elbow surgery Family History Grandfather Diabetes Social History (Updated 03/24/25 @ 11:31 by Tyra Ramos) adopted: No household members: spouse and children number of children: 2 current occupational status: employed 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[employer] current occupational exposures/hazards: No pets and animals: No history of recent travel: No sexually active: Yes Smoking Status: Never smoker alcohol intake: never substance use type: does not use well-balanced diet: daily or most days caffeine: No eating out: rarely or never during the past year weight has: remained stable what type of physical activity do you participate in: none antwan/evangelical: None seatbelt use: always do you feel safe at home: Yes additional social history: [employer] 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 Date Name GA/Weeks Outcome Route Bth Weight Gen Labor Lgth Anesthesia Del Locatn Provider FOB 04/28/20 Ashely 39 live - full term Male epidural [facility] ANNA 02/01/25 Scooby 39 live - full term 7lb 11oz Male epidural [facility] Maria Fernanda Daly Delivery Date: 04/28/20 Last Updated by: Alcira Hopper 2 degree laceration Delivery Date: 02/01/25 Last Updated by: Cecelia Alcazar see problem list for complications, and SM IOL AMA Depression Screen PHQ-2/9 PHQ-2 Over the last 2 weeks, how often have you been bothered by any of the following problems? 1. Little interest or pleasure in doing things: not at all 2. Feeling down, depressed, or hopeless: not at all Total score: 0 Post HPI Routine Follow-Up: Details: IVANNA OZUNA is a 39 year old who presents for her post visit. Feeding: Breast Menses resumed: No [place] since delivery: No Emotional Support: Yes Last Pap:: 10/30/23 Control Method: BS pre op ROS Const Reports system reviewed and no additional complaints, except as documented GI Reports system reviewed and no additional complaints, except as documented, Denies bloating, Denies constipation, Denies nausea and Denies vomiting Reports system reviewed and no additional complaints, except as documented, Denies abnormal vaginal bleeding, Denies pelvic pain, Denies sexual dysfunction, Denies urinary incontinence, Denies urinary hesitancy, Denies urinary urgency and Denies vaginal discharge Skin/Breast Reports system reviewed and no additional complaints, except as documented and Reports as per HPI Psych Reports as per HPI Exam Const General: cooperative, healthy appearing, comfortable and no acute distress HENMT Head: normal to inspection Neck Neck: normal visual inspection and no lymphadenopathy Thyroid: thyroid normal Chest Breast inspection: normal inspection of the breasts and normal inspection of the axillae Breast palpation: normal palpation of the breasts and normal palpation of the axillae Resp Effort & Inspection: normal respiratory effort GI Inspection: normal to inspection Palpation: soft, no hepatosplenomegaly and nontender General: bladder normal to palpation External Female Exam: normal external appearance and normal appearance of the urethra Urethra: normal appearance of the urethra Speculum Exam - Vagina: normal appearance of the vagina and normal vaginal discharge Speculum Exam - Cervix: normal appearance of the cervix Bimanual Exam- Vagina & Uterus: normal bimanual exam, uterine size normal, bladder normal to palpation, uterine shape normal and non-tender Bimanual Exam- Adnexa, other: normal adnexae and normal Pelvic Support: normal Skin General: no rashes or lesions noted Coding Level of Care Code No Charge Diagnoses Routine Follow-Up Z39.2 Assessment and Plan Assessment and Plan sterilization After discussing the patient's diagnosis and treatment plan options, patient wishes to proceed with surgical management. I have discussed with the patient the risks, benefits, and alternatives of the procedure which include but are not limited to risks of anesthesia, bleeding, infection, possible damage to bowel, bladder, or surrounding vasculature which could lead to additional surgery to evaluate any complications. Patient agrees to procedure and wishes to proceed. ACOG/uptodate references given for additional information regarding procedure.
--- NOTE | 2025-04-04 07:58 | PCM.DC ---
Discharge Instructions Diet Discharge Diet: No restrictions DC O2, CPAP, BIPAP needs Home O2 Discharge instructions: No Dressing / Incision Discharge Activity: Return to Normal Activity, May Not Drive ( while taking narcotic pain meds, when pain free), May Shower and May Take a Tub Bath (in 7 days) May resume sexual activity in: 1 week Weight Bearing Status: Full weight bearing Dressing / Incision Call your doctor if your incision/area has: Continuous Slow Oozing, Sudden Increased Bleeding, Increased Pain/ Swelling, Increased Redness and Foul Smelling Discharge Call your doctor if you observe: Fever of 101 or Higher, Using more than 1 pad per hour, Shortness of breath, Chest pain and Uncontrolled pain Suture Line Care: Avoid Pulling/Pushing and Avoid Pinching/Bending Remove Dressing in: 1 week (if present) Cleanse incision/area with: Soap & Water and Keep Dressing Clean & Dry Follow Up Care When: Call to make an appointment with your doctor for a fu/incision check in 1-2 weeks. Test Results: Test results from this visit will be discussed in further detail at your follow-up appointment, if applicable. Discharge Plan Admission Attending Provider: Maria Fernanda Marquez Primary Care Provider: Care Physician,No Primary Instructions Print Language: Grenadian Discharge Orders/Prescriptions Prescriptions: New oxycodone-acetaminophen [Percocet] 5-325 mg tablet 1 tab PO Q4H PRN (Reason: pain) 7 Days Qty: 20 0RF naproxen 500 mg tablet 500 mg PO BID PRN PRN (Reason: Pain) Qty: 30 1RF Referrals / Follow Up: Care Physician,No Primary [Primary Care Provider] - Disposition Disposition (needs filled in before D/C Order can be placed): Home, Self Care
--- NOTE | 2025-04-04 09:50 | PCM.PRE.AN2 ---
ASA Classification* ASA Classification ASA Classification: 2 Assessment & Plan Anesthesia* Anesthesia Assessment Anesthesia Assessment: Discussed sedation and/or anesthesia options, risks, benefits, and alternatives with patient/parents/legal guardian/POA. Questions invited. The patient/parents/legal guardian/POA seems to understand and agrees to proceed with anesthesia plan. Reviewed the physical assessment, medical history, allergy history and patient home medications list prior to surgery/procedure/anesthetic and documented any changes. Performed airway and anesthesia risk assessments. Anesthesia Type Anesthesia Type: General Anesthesia Focused Assessment* Airway Assessment Mouth opens: >3 cm Mallampati Score: II Focused Labs Anesthesia Preop lab: CBC WBC 12.2 K/mm3 (4.4-11.0) H 02/01/25 16:35 02/01/25 RBC 3.67 M/mm3 (4.2-5.4) L 02/01/25 16:35 02/01/25 Hgb 10.9 g/dL (12.0-15.0) L 02/01/25 16:35 02/01/25 Hct 32.7 % (37-47) L 02/01/25 16:35 02/01/25 Plt Count 173 K/mm3 (150-450) 02/01/25 16:35 02/01/25 CHEMISTRY POC Glucose 87 mg/dL (74-106) 11/23/24 06:56 11/23/24 TSH 1.43 uIU/mL (0.358-3.74) 05/14/19 10:30 05/14/19 COAG Urine Test Negative Negative 09/24/16 09:15 09/24/16 Tst Clinic Negative 12/15/23 14:18 12/15/23 Pre-Assessment Diagnosis/Proposed Procedure Planned Operative Procedure(s): LAP SALPINGECTOMY BILAT Anesthesia History 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 When Was Last Pacemaker Check QUESTION #4 FULL TEXT: You/Your Family Experience fever (hyperthermia) with Anesthesia Last Oral Intake Last Oral intake: Last Oral Intake NPO since Meds taken in AM with sips of water? Meds patient instructed to take am of surgery PONV PONV - cyber forensics analyst: PONV - cyber forensics analyst Female Yes 03/24/25 13:19 HX of Motion Sickness No 03/24/25 13:19 HX of N/V After Surgery No 03/24/25 13:19 Non-Smoker Yes 03/24/25 13:19 Duration of Surgery greater No 03/24/25 13:19 than 60 minutes Number of Risk Factors 2 03/24/25 13:19 PONV Score Moderate Risk 03/24/25 13:19 Height & Weight Height & Weight: Anesthesia: Height & Weight Height 5 ft 3 in 03/24/25 11:28 Respiratory Assessment Respiratory Assessment - cyber forensics analyst: Respiratory Tract Infection Hx - cyber forensics analyst Hx Respiratory Tract Infection No 03/24/25 13:19 STOP Sleep Apnea STOP Sleep Apnea - cyber forensics analyst: STOP Sleep Apnea - cyber forensics analyst Hx Hypertension No 03/24/25 13:19 Hx Sleep Apnea No 03/24/25 13:19 CPAP BIPAP Do you snore loudly (louder Yes 03/24/25 13:19 than talking or can be heard Do you often feel tired/ No 03/24/25 13:19 fatigued/ sleepy during daytime? Has anyone observed you stop No 03/24/25 13:19 breathing during sleep? STOP Results Negative 03/24/25 13:19 QUESTION #5 FULL TEXT : Do you snore loudly (louder than talking or can be heard through closed doors)? 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 Specify any problems Hx of Preganancy in last 3 No 03/24/25 13:19 Months Nurse Filling Out Transfusion DSCHRIBER 03/24/25 13:19 & Questions: Date: 03/24/25 03/24/25 13:19 Time: 13:20 03/24/25 13:19 Patient unable to answer at this time (ie. confused, unrespo /Reproduction History /Reproductive History - cyber forensics analyst: /Reproductive Hx- cyber forensics analyst Hx Now No 03/24/25 13:19 Gestational Age (in weeks): EDC: Hx Hx Para Hx Section SAB Yes 03/24/25 13:19 Active Medications Active Medications: Current Medications Generic Name Dose Route Start Last Admin Trade Name Freq PRN Reason Stop Dose Admin Lactated Ringer's 1,000 mls @ 15 mls/hr 04/04/25 10:00 IV .Q48H LUCY PFSH Medical History Wears glasses Low iron Blackout Shortness of breath on exertion Non-smoker Iron (Fe) deficiency anemia Home Medications ?Medication ?Instructions ?Recorded ?Last Taken ?Type naproxen 500 mg tablet 500 mg PO BID PRN PRN Pain #30 tabs 04/04/25 Unknown Rx oxycodone-acetaminophen 5 mg-325 1 tab PO Q4H PRN pain 7 days #20 04/04/25 Unknown Rx mg tablet (Percocet) tabs Allergy/AdvReac Type Severity Reaction Status Date / Time No Known Allergies Allergy Verified 03/24/25 13:18 Family History Grandfather Diabetes Surgical History Status post bilateral salpingectomy s/p left elbow surgery Social History adopted: No household members: spouse and children number of children: 2 current occupational status: employed 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[employer] current occupational exposures/hazards: No pets and animals: No history of recent travel: No sexually active: Yes Smoking Status: Never smoker alcohol intake: never substance use type: does not use well-balanced diet: daily or most days caffeine: No eating out: rarely or never during the past year weight has: remained stable what type of physical activity do you participate in: none antwan/sikhism: None seatbelt use: always do you feel safe at home: Yes additional social history: [employer] 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
[2025-04-04] MEDS: Lactated Ringers 1,000 ML 15 ML IV (10:08)
[2025-04-04 10:15] LABS: Internal QC Validated? YES +Cl - CLEAR BKGD; Pregnancy, Urine Negative Negative
[2025-04-04 10:15] LABS: Hematocrit 41.5 % (37-47); Hemoglobin 13.3 g/dL (12.0-15.0); Mean Corpuscular Hgb 27.7 pg (27.0-32.0); Mean Corpuscular Volume 86.3 fL (81-99); Mean Platelet Vol. 10.3 fl (6.2-12.0); Platelet Count 233 K/mm3 (150-450); RBC Distribution Width CV 13.1 % (11.6-14.6); RBC Distribution Width SD 41.1 fl (35.1-43.9); Red Blood Count 4.81 M/mm3 (4.2-5.4); White Blood Count 4.7 K/mm3 (4.4-11.0)
--- NOTE | 2025-04-04 11:00 | FALS_PTH ---
PATIENT: IVANNA OZUNA LOC: [facility] [place] U#:[id number] AGE/SX: 39/F ROOM: RE04/04/[address]: Dr. Maria Fernanda Marquez MD : 1985 BED: DIS: 04/04/2025 SPEC #: [id number] RECD: 04/04/25 12:14 STATUS: JARROD REHilary #: [id number] ADDIS: 04/04/25 11:[address]: Maria Fernanda Marquez DEPT: SURGICAL PATHOLOGY RECD BY: Osmar Wolff ENTERED: 04/04/25 13:19 SP TYPE: FALL TUBES OTHR DR: No Primary Care Phys Tissues: A - Fallopian tube Procedures: Surgery Specimen Level II HEADER OPERATION: Laparoscopic salpingectomy PRE-OP DIAGNOSIS: Routine , assessment and plan, sterilization TISSUE SUBMITTED: A- Bilateral fallopian tubes MICROSCOPIC DIAGNOSIS A. Bilateral fallopian tubes, salpingectomy: * Benign fallopian tubes with complete cross sections obtained MICROSCOPIC DESCRIPTION Slides are reviewed. GROSS DESCRIPTION A. Received in formalin in a container labeled with the patient's name, date of , and bilateral fallopian tubes are 2 unoriented fallopian tube segments. The first is 7 cm in length by 0.7 cm in diameter with engel-pink, smooth, and glistening serosa and an unremarkable fimbriated end. Sectioning reveals a pinpoint lumen. The second fallopian tube is 4.0 cm in length by 0.5 cm in diameter with no fimbria present. The serosa is engel-pink, smooth, and glistening and sectioning reveals a pinpoint lumen. Collections Clerk sections:A1. Longer, fimbriated fallopian tubeA2. [place], non-fimbriated fallopian tube [facility] 04-04-2025 CPT:75865m2
[2025-04-04] MEDS: Bupivacaine 0.25% 30 ML Vial (11:42)
--- NOTE | 2025-04-04 11:47 | PCM.OPRPT ---
Problems Associated Problem List Diagnoses (1) Sterilization: (2) Status post bilateral salpingectomy: Multi Select Codes Urinary/Genital Urinary/Genital CPT Codes: 38136 Laproscopic BS/O Operative Report (Standard) Operative Information Date of Procedure: 04/04/25 Pre-Operative Diagnosis: see problem list Post-Operative Diagnosis: same Surgery/Procedure Performed: laparoscopic bilateral salpingectomy agricultural equipment mechanic: No Type of Anesthesia: General RN Documented Start/Stop Times: Operation Date: 04/04/25 11:00 Case Time Into Pre-Op 04/04/25 09:45 Anesthesia Start 04/04/25 11:08 Into Room 04/04/25 11:08 Procedure Start 04/04/25 11:26 Procedure Start Time: 11:26 Procedure Stop Time: 11:47 Select all DRAINS/GRAFTS/IMPLANTS that apply: None Estimated Blood Loss: 25 Specimen collected: Yes Description of specimen(s) removed: bilateral tubes Description of surgery: Patient was taken in the operating room and was placed under general anesthesia was prepped and draped in normal sterile fashion in the dorsal lithotomy position. Bladder was drained of clear urine and SCDs were on preoperatively. Uterus was sounded and a uterine manipulator was placed after dilating. Attention was then paid to the abdominal portion of the procedure and the umbilicus was elevated with towel clamps and injected with Marcaine and after a 5 mm incision was made and the Veress needle was entered into the abdomen confirmed to be intra-abdominal with a low opening pressure of less than 5 mmHg. Abdomen was insufflated with CO2 gas and a 5 mm optical trocar was placed under direct visualization. suprapubic 5 mm port was placed under direct visualization. Uterus was well visualized and upon inspection of the pelvis bilateral tube seen and WNL. bilateral tubes removed with ligasure device without complication. left sigmoid colon adhesions taken down without complications Excellent hemostasis was noted in the pelvis. Liver and upper abdomen were visualized notably within normal limits and no other gross abnormalities were seen in the abdomen. All instruments removed from the abdomen after gas was desufflated. Port sites were closed with 3-0 Monocryl Steri's and op sites were applied. All instruments removed from the vagina and patient was awoken and taken recovery in stable condition. Surgical Findings: nl uterus tubes ovaries sigmoid colon adhesions Complications Complications: No
--- NOTE | 2025-04-04 12:06 | PCM.POST.ANE ---
Anesthesia: Postop Eval I Current Vital Signs Temperature: 97.2 F Pulse Rate: 80 Blood Pressure: 116/77 Respiratory Rate: 16 Pulse Ox: 100 Oxygen Delivery Method: Room Air Assessment Airway patent: Yes Spontaneous unlabored respirations: Yes Mental status: Awake and Calm nausea: No Vomiting: No Anesthesia Complication: No Fluid Hydration Crystalloid volume administer (ml): 700 Total IV fluid infused: 700 Progress Note Anesthesia document: Postop Eval 1 completed: Yes
--- NOTE | 2025-04-04 13:00 | POSTOPAN2_ITS ---
Anesthesia Postop Eval I Sum Postop Eval Completion status Anesthesia document: Postop Eval 1 completed: Yes Anesthesia Postop Eval I Summary Anesthesia Postop Eval I Summary: Anesthesia Postop Eval I: Assessment Summary Airway patent Yes 04/04/25 12:06 PHARMACY TECHNICIAN ASSISTANT.GDOTT Spontaneous unlabored Yes 04/04/25 12:06 PHARMACY TECHNICIAN ASSISTANT.GDOTT respirations Mental status Awake,Calm 04/04/25 12:06 PHARMACY TECHNICIAN ASSISTANT.GDOTT nausea No 04/04/25 12:06 PHARMACY TECHNICIAN ASSISTANT.GDOTT Vomiting No 04/04/25 12:06 PHARMACY TECHNICIAN ASSISTANT.GDOTT Anesthesia Postop Eval I: Fluid Summary Crystalloid volume administer 700 04/04/25 12:06 PHARMACY TECHNICIAN ASSISTANT.GDOTT (ml) Colloids volume administered ( ml) Blood Product volume administered (ml) Total IV fluid infused 700 04/04/25 12:06 PHARMACY TECHNICIAN ASSISTANT.GDOTT Anesthesia Postop Eval I: Summary Notes Anesthesia Complication No 04/04/25 12:06 PHARMACY TECHNICIAN ASSISTANT.GDOTT Anesthesia Complication Comment: Post-operative progress note Anesthesia: Postop Eval II Evaluation Mental status: Awake Pain Level: 0 nausea: No Vomiting: No
--- NOTE | 2025-04-04 13:00 | PCM.POSTANE2 ---
Anesthesia Postop Eval I Sum Postop Eval Completion status Anesthesia document: Postop Eval 1 completed: Yes Anesthesia Postop Eval I Summary Anesthesia Postop Eval I Summary: Anesthesia Postop Eval I: Assessment Summary Airway patent Yes 04/04/25 12:06 SHIP WORKER.[email or web address] Spontaneous unlabored Yes 04/04/25 12:06 SHIP WORKER.GDOTT respirations Mental status Awake,Calm 04/04/25 12:06 SHIP WORKER.GDOTT nausea No 04/04/25 12:06 SHIP WORKER.GDOTT Vomiting No 04/04/25 12:06 SHIP WORKER.GDOTT Anesthesia Postop Eval I: Fluid Summary Crystalloid volume administer 700 04/04/25 12:06 SHIP WORKER.GDOTT (ml) Colloids volume administered ( ml) Blood Product volume administered (ml) Total IV fluid infused 700 04/04/25 12:06 SHIP WORKER.GDOTT Anesthesia Postop Eval I: Summary Notes Anesthesia Complication No 04/04/25 12:06 SHIP WORKER.GDOTT Anesthesia Complication Comment: Post-operative progress note Anesthesia: Postop Eval II Evaluation Mental status: Awake Pain Level: 0 nausea: No Vomiting: No
== END 2025-04-04 13:03 | disposition home or self-care (01) ==
LOC: SDC 09:35 → AC 09:36
PROVIDERS: Referring Provider Obstetrics & Gynecology; Visit Provider Obstetrics & Gynecology
PROC: (CPT 58661; principal; 2025-04-04 10:45)
DX: Z30.2 Encounter for sterilization (principal); D50.9 Iron deficiency anemia, unspecified
CPT/HCPCS: 58661; 00840; 81025; 85027; 86850; 86900; 86901; 88302; J2405